=== PATIENT | male | born 1990 | race African-American/Black ===

== ENCOUNTER 2021-02-10 09:12 | Emergency (ER) | payer OTHER, SELFPAY ==
[2021-02-10 09:21] VITALS: BP 145/84; PULSE 95; RESP 14; TEMP 36.8; O2SAT 96; BMI 23.5
[2021-02-10] MEDS: Diphth,Pertus(ACell),Tet Adult 0.5 ML SYRINGE IM (09:39)
[2021-02-10] MEDS: Lidocaine HCl 1 % MPF 5 ML VIAL SUBCUT (09:40)
--- NOTE | 2021-02-10 10:26 | ED_ITS ---
HPI - Wound/Laceration General Chief Complaint: Wound/Laceration Stated Complaint: laceration to rt thumb Time Seen by Provider: 02/10/21 09:29 Source: patient Mode of arrival: ambulatory History of Present Illness HPI narrative: 30-year-old male presenting to the ED complaining of laceration to right thumb s/p reaching for CT this morning and slicing on metal bed frame. Tetanus out of date. Denies numbness, tingling, weakness, injury to the area, fever, chills Onset (ago): minute(s) Related Data Allergies Allergy/AdvReac Type Severity Reaction Status Date / Time No Known Allergies Allergy Unverified 05/10/20 17:39 [No Known Allergies*] Review of Systems Review of Systems: Constitutional: No Fever, No Chills Musculoskeletal: No joint pain, No Myalgias, No Joint Swelling Skin: + laceration Neuro: No Weakness, No Numbness, No Paresthesias Yes all other systems are reviewed and are negative Neurologic: Denies Sensory deficit (Neuro) [facility] Past Medical History Attestation statement: The following information was validated with the patient. Medical History (Updated 02/10/21 @ 10:28 by BASSAM Gates) HTN (hypertension) Surgical History (Updated 02/10/21 @ 09:23 by Corrine Harden) H/O wrist surgery Social History Social History Advance Directives: No Advance Directives Information Provided: No Physical Exam Vital Signs: Vital Signs: Last Vital Signs Temp 98.2 F 02/10/21 09:21 Pulse 95 02/10/21 09:21 Resp 14 02/10/21 09:21 BP 145/84 H 02/10/21 09:21 Pulse Ox 96 02/10/21 09:21 Body Mass Index 23.5 Const: General: cooperative, healthy appearing and no acute distress Orientation/consciousness: patient oriented x3 Limitations: no limitations HENMT: Head: Yes normal to inspection Ears: hearing grossly normal bilaterally General nose exam: Normal external nose present Face and sinus: Yes normal facial exam Eyes: General: appearance normal, both eyes and all related structures EOM: EOMs intact bilaterally Neck: Neck: Yes normal visual inspection and Yes no meningeal signs Resp: Effort & Inspection: normal respiratory effort Cardio: Rate: regular rate Peripheral pulses: radial pulses present Skin: Other: 2 cm linear laceration noted to distal right thumb. No nail involvement. Full range of motion intact. Sensation intact to light touch. [id number] opposition intact. Rashes: no rashes Neuro: General: patient oriented x3, tone normal, moves all extremities and no meningeal signs Gait exam (Neuro): Normal gait present Sensory Exam: No Sensory deficit (Neuro) Extrem: General: Yes normal to inspection Procedures Laceration Laceration 1: Site: hand Side (If applicable): right Size (cm): 2 Description: linear Depth: simple, single layer Local Anesthetic: lidocaine 1% Amount of anesthesia used (mL): 3 Pre-repair: wound explored Skin layer closed with: nylon Size (cm): 5-0 Number of sutures: 4 Technique: simple, interrupted MDM - Wound/Laceration MDM Narrative Medical decision making narrative: 30-year-old male presenting to the ED complaining of laceration to right thumb s/p reaching for CT this morning and slicing on metal bed frame. On exam vital signs stable, NAD, well-appearing, physical exam as above. Will update tetanus and suture wound Discharge Plan Discharge Clinical Impression: Hand laceration Qualifiers: Encounter type: initial encounter Foreign body presence: without foreign body Laterality: right Qualified Code(s): S61.411A - Laceration without foreign body of right hand, initial encounter Patient Disposition: Home, Self-Care Instructions: Finger Laceration (ED) Additional Instructions: return to any emergency department or urgent care in 7-10 days to have her stitches taken out keep area dry and clean Pat dry, do not scrub Take Tylenol and Motrin The Steri-Strips will follow up on their own, do not pick at them If area begins to look infected, is red, there is drainage, you fever please return to the ED Referrals: Physician,Unknown [Primary Care Provider] - 1 week ( return to any emergency department or urgent care in 7-10 days to have her stitches taken out) Stand Alone Forms: Work/School Release
== END 2021-02-10 10:39 | disposition home or self-care (01) ==
PROVIDERS: Emergency Provider Emergency Medicine
DX: S61.411A Laceration without foreign body of right hand, initial encounter (principal); I10 Essential (primary) hypertension; W26.9XXA Contact with unspecified sharp object(s), initial encounter; Y93.9 Activity, unspecified; Y92.9 Unspecified place or not applicable; Y99.9 Unspecified external cause status
CPT/HCPCS: 12001; 90471; 90715; 99283; 99284

== ENCOUNTER 2021-02-19 08:37 | Emergency (ER) | payer OTHER, SELFPAY ==
[2021-02-19 08:45] VITALS: BP 153/105; PULSE 100; RESP 16; TEMP 36.7; O2SAT 97; BMI 22.8
--- NOTE | 2021-02-19 09:49 | ED.WOUNDLAC ---
HPI - Wound/Laceration General Chief Complaint: Wound/Laceration Stated Complaint: stiches removed Time Seen by Provider: 02/19/21 09:45 Source: patient Mode of arrival: ambulatory History of Present Illness HPI narrative: 30-year-old male presenting to the ED for suture removal from right thumb s/p sutures placed in our ED 9 days ago. denies fever, chills, pus drainage from area Onset (ago): day(s) Related Data Allergies Allergy/AdvReac Type Severity Reaction Status Date / Time No Known Allergies Allergy Verified 02/19/21 08:45 [No Known Allergies*] Review of Systems Review of Systems: Constitutional: No Fever, No Chills Musculoskeletal: No joint pain, No Joint Swelling Skin: +laceration Neuro: No Weakness, No Numbness, No Paresthesias Yes all other systems are reviewed and are negative [facility] Past Medical History Attestation statement: The following information was validated with the patient. Medical History (Updated 02/19/21 @ 09:49 by BASSAM Gates) HTN (hypertension) Surgical History (Updated 02/10/21 @ 09:23 by Corrine Harden) H/O wrist surgery Social History Social History Advance Directives: Yes Advance Directives Information Provided: Yes Advance Directives on File: No Physical Exam Vital Signs: Vital Signs: Last Vital Signs Temp 98.1 F 02/19/21 08:45 Pulse 100 02/19/21 08:45 Resp 16 02/19/21 08:45 BP 153/105 H 02/19/21 08:45 Pulse Ox 97 02/19/21 08:45 Body Mass Index 22.8 Const: General: cooperative, healthy appearing and no acute distress Orientation/consciousness: patient oriented x3 Limitations: no limitations HENMT: Head: Yes normal to inspection Ears: hearing grossly normal bilaterally General nose exam: Normal external nose present Face and sinus: Yes normal facial exam Eyes: General: appearance normal, both eyes and all related structures EOM: EOMs intact bilaterally Neck: Neck: Yes normal visual inspection Resp: Effort & Inspection: normal respiratory effort Cardio: Rate: regular rate Peripheral pulses: radial pulses present Skin: Other: healing laceration noted to right distal thumb with 4 sutures intact. NV intact. FROM intact Rashes: no rashes Neuro: General: patient oriented x3 Gait exam (Neuro): Normal gait present Extrem: General: Yes normal to inspection Procedures Procedure Narrative Procedure Narrative: 4 sutures removed from right thumb MDM - Wound/Laceration Medical Records Attestation: I reviewed the patient's medical records. Discharge Plan Discharge Clinical Impression: Encounter for removal of sutures Patient Disposition: Home, Self-Care Instructions: Stitches Removal (ED) Additional Instructions: keep area clean. If begins look infected, is red, there is drainage, or pus drainage return to the ED. Take Tylenol/ Motrin for pain/ swelling. Apply bacitracin or Neosporin. Apply Mederma which is an anti scar cream Referrals: Physician,Unknown [Primary Care Provider] - 2 days Stand Alone Forms: Work/School Release
== END 2021-02-19 10:01 | disposition home or self-care (01) ==
PROVIDERS: Emergency Provider Emergency Medicine Emergency Medical Services
DX: S61.011D Laceration without foreign body of right thumb without damage to nail, subsequent encounter (principal); X58.XXXD Exposure to other specified factors, subsequent encounter
CPT/HCPCS: 99283

== ENCOUNTER → 2021-05-22 13:24 | Outpatient (BNVA) | payer OTHER, SELFPAY | PROVIDERS: Visit Provider Physician Assistant Medical | DX: Z77.098 Contact with and (suspected) exposure to other hazardous, chiefly nonmedicinal, chemicals (principal); T26.91XA Corrosion of right eye and adnexa, part unspecified, initial encounter; X58.XXXA Exposure to other specified factors, initial encounter | CPT/HCPCS: 99203 ==

== ENCOUNTER 2022-01-02 07:47 | Emergency (ER) | payer BC, SELFPAY ==
--- NOTE | ~2022-01-02 | XR_ITS ---
EXAMINATION: XR CHEST CLINICAL INFORMATION: Shortness of breath. COMPARISON: None TECHNIQUE: 2 views of the chest were obtained. FINDINGS: No significant abnormality is noted involving the heart, lungs, mediastinum, bony thorax or soft tissues. XR/XR chest 2V IMPRESSION: No acute cardiopulmonary process.
[2022-01-02 08:05] VITALS: BP 159/86; PULSE 104; RESP 18; TEMP 36.6; O2SAT 98; BMI 22.9
--- NOTE | 2022-01-02 08:44 | ED_ITS ---
HPI - General Adult General Chief complaint: General Medical Stated complaint: tingling in hands and feet Time Seen by Provider: 01/02/22 08:13 Source: patient Mode of arrival: ambulatory Limitations: no limitations History of Present Illness HPI narrative: 31-year-old male presents for bilateral foot tingling that started last week. This sensation started last week and then resolved, then again yesterday aftern oon he had bilateral foot tingling. States that at 07:00 this morning his right arm felt tight, and he felt nauseous. Denies chest pain, denies shortness of breath. States his hands are sweaty now. History of hypertension, patient states he has been taking his blood pressure medication in a year because he has not been able to get in to see his PCP. His mom was an insulin-dependent diabetic who had CT at age 66. She 3 weeks ago in [place] and he had to get her cremated and work with the [employer] to have her ashes flown home. His mother was in [place] to take care of his grandmother also recently . Father had a heart attack in his late 40s. Without me asking, patient took his clothes is that he has been drinking a lot of alcohol. States he drinks 5-10 drinks a day, has occasional blackouts, sometimes drinks in the morning, sometimes feels guilty about drinking. Related Data Previous Rx's Medication Instructions Recorded gabapentin 300 mg capsule 300 mg PO BID 30 Days #60 cap 01/02/22 Allergies Allergy/AdvReac Type Severity Reaction Status Date / Time No Known Allergies Allergy Verified 02/19/21 08:45 [No Known Allergies*] Review of Systems Constitutional: Constitutional: Denies body ache(s), Denies chills, Denies fatigue, Denies fever(s), Denies headache(s), Denies malaise and Denies weakness Eyes: Eyes: Denies diplopia ENT: Reports Normal hearing present, Denies vertigo, Denies dizziness, Denies otalgia, Denies headache(s), Denies mouth pain, Denies post nasal drip, Denies sinus pain, Denies sinus pressure, Denies sore throat and Denies throat swelling Cardiovascular: Cardiovascular: Denies chest pain, Denies syncope, Denies leg edema, Denies lightheadedness, Denies Loss of Consciousness, Denies palpitations and Denies dyspnea Respiratory: Respiratory: Denies chest congestion, Denies cough and Denies dyspnea Gastrointestinal: Gastrointestinal: Denies abdominal pain, Denies hematochezia, Denies constipation, Denies diarrhea, Reports nausea and Denies vomiting Musculoskeletal: Musculoskeletal: Reports myalgias and Reports tingling Neurologic: Reports Normal hearing present, Denies Abnormal speech present, Denies confusion, Denies vertigo, Denies dizziness, Denies syncope, Denies headache(s), Denies Sensory deficit (Neuro), Reports tingling and Denies weakness Psychiatric: Psychiatric: Reports anxiety, Denies confusion and Denies depression Endocrine: Endocrine: Denies fatigue and Denies palpitations Allergic/Immunologic: Allergic/Immunologic: Denies throat swelling PMFSH Past Medical History Medical History HTN (hypertension) Surgical History H/O wrist surgery Social History Social History Advance Directives: No Advance Directives Information Provided: No Physical Exam ED Vital Signs: Vital Signs - 24 hr 01/02/22 08:05 Temperature 98 F Pulse Rate 104 H Respiratory Rate 18 Blood Pressure 159/86 H Pulse Oximetry 98 BMI result Body Mass Index 22.9 Const General: comfortable, well developed, alert and awake; No confusion Nutritional Appearance: well nourished Orientation/consciousness: patient oriented x3 and No confusion Limitations: no limitations HENMT Head: Yes normal to inspection, Yes normocephalic and Yes atraumatic Ears: hearing grossly normal bilaterally, external ears normal, TM's normal bilaterally and EAC's normal General nose exam: Normal external nose present Face and sinus: Yes normal facial exam and Yes sinuses nontender Mouth: Normal oral and palatal mucosa present Throat: Yes posterior oropharynx normal Eyes Conjunctivae: conjunctivae normal Pupils: Equal, round and reactive pupils present EOM: EOMs intact bilaterally and No Nystagmus present Neck Neck: Yes full ROM, Yes no lymphadenopathy and Yes supple Resp Effort & Inspection: normal respiratory effort and able to speak in complete sentences Auscultation: clear to auscultation bilaterally, no crackles, no rales, no rh onchi and no wheezes Cardio Rate: regular rate Rhythm: regular rhythm Heart sounds: S1 normal heart sound present and S2 normal heart sound present GI Inspection: Yes normal to inspection Palpation (GI): Soft to palpation, nontender, no guarding and not rigid Percussion: Yes normal to percussion Auscultation: normal bowel sounds Skin General skin exam: no rashes or lesions noted Neuro General: patient oriented x3 and No confusion Cranial nerves: Yes CN's II-XII intact bilaterally, Yes Facial sensation intact/muscles of mastication intact, Yes Equal, round and reactive pupils present, Yes Normal accommodation reflex present, Yes Bilaterally intact EOM p resent, Yes Nystagmus not present, Yes Normal facial strength present, Yes Midline tongue present, Yes Normal hearing present, Yes Ability to bilaterally rotate head present, Yes Ability to bilaterally elevate shoulders present and No Nystagmus present Cognition (Neuro): normal cognition Speech: No Abnormal speech present Gait exam (Neuro): Normal gait present Motor exam (neuro): 5/5 motor strength present throughout Sensory Exam: No Sensory deficit (Neuro) Deep tendon reflexes (DTR's): Right brachioradialis reflex intensity grade: 1+, Left brachioradialis reflex intensity grade: 1+, Right patellar reflex intensity grade: 1+ and Left patellar reflex intensity grade: 1+ Coordination: [id number] test normal and [id number] test normal Pupils: Normal pupillary reactivity/response: bilateral Extrem General: Yes normal to inspection and Yes full ROM Psych Appearance: grossly normal Mental Status: mental status grossly normal Speech and movement: Normal speech and movement present Affect: normal affect Attitude: cooperative Thought process: Normal thought process present Course Course Course Narrative: 31-year-old presents for tingling in his toes that started a few weeks ago and has been going on intermittently. Patient has a normal neurological exam. Patient discloses to me that he is concerned about his drinking. Patient is under a lot of life stressors. EKG, labs, troponin Spoke to Sheila, basketball coach, she interviewed patient. Patient is interested in naltrexone. Sheila will walk him up to the [facility] once he is discharged from the emergency room, so patient can get started on naltrexone and get a referral to a therapist Reevaluation(s) Reevaluation #1: Patient has a low white blood cell count at 2.2, is mildly anemic with H&H at 13.6 and 41.5, platelets 147. Chemistries show blood glucose is 105, elevated liver function tests, AST 195, ALT 153, troponin 5.7. Elevated liver function tests can be explained by patient's alcohol abuse Patient has no bandemia with his leukocytopenia, will have patient follow-up with primary care after discharge with possible referral to a human resource manager I do not think the leukocytopenia is sepsis, patient only has the 1 criteria, rule normal temp, RR, heart rate. To note, patient has no history of fevers, dysuria, cough, upper respiratory symptoms, abdominal pain, chest pain, shortness of breath, nausea, vomiting, diarrhea, headache, neck pain, blurry vision Patient's heart rate was initially elevated at 104, now is back to normal, I do think patient's elevated heart rate was due to anxiety. Repeat HR 84 Because we are repeating troponin, will get urine and chest x-ray as well Will repeat troponin in 3 hours, if negative, will [facility]po [facility] Reevaluation #2: Repeat troponin 5.4, chest x-ray is normal, urine is not infected Will have patient follow-up with primary care for leukocytopenia, elevated liver function test, peripheral neuropathy swimming coach or instructor will escort patient to [facility] Medical Decision Making Lab Data Result diagrams: 01/02/22 09:32 01/02/22 09:32 Labs: Lab Results 01/02/22 01/02/22 01/02/22 Range/Units 09:32 09:32 09:32 WBC 2.2 L (4.8-10.8) X10*3/uL RBC 4.77 (4.60-5.80) X10*6/uL Hgb 13.6 L (14.0-18.0) g/dl Hct 41.5 L (42.0-52.0) % MCV 87.0 (80.0-98.0) fL MCH 28.5 (27.0-33.0) pg MCHC 32.8 (31.0-36.0) g/dl RDW 14.4 (11.0-16.0) % Plt Count 147 L (160-400) X10*3/uL MPV 9.9 (9.4-12.4) fL Immature Gran % (Auto) 0.5 H (0.0-0.4) % Neut % (Auto) 33.1 L (45-73) % Lymph % (Auto) 43.8 H (20-40) % Angelina % (Auto) 21.2 H (2-11) % Eos % (Auto) 0.5 (0-4) % Baso % (Auto) 0.9 (0-2) % Lymph # (Auto) 1.0 L (1.2-4.9) X10*3/uL Angelina # (Auto) 0.5 (0.1-1.2) X10*3/uL Eos # (Auto) 0.0 (0.0-0.4) X10*3/uL Baso # (Auto) 0.0 (0.0-0.2) X10*3/uL Abs Immat Gran (auto) 0.01 (0.00-0.03) X10*3/uL Absolute Neuts (auto) 0.7 L (2.0-8.3) x10*3/uL Absolute Nucleated RBC 0.000 (0.0-0.012) X10*3/uL Nucleated RBC % (auto) 0.0 (0.0-0.2) /100WBC Smear Tech's Comments VERIFIED Sodium 141 (135-145) mmol/L Potassium 4.3 (3.3-5.1) mmol/L Chloride 101 (96-108) mmol/L Carbon Dioxide 29 (22-29) mmol/L Anion Gap 15 (12-20) BUN 10 (9-16) mg/dL Creatinine 0.83 (0.5-1.4) mg/dL Estim Creat Clear Calc 141.3 Estimated GFR > 60 Random Glucose 105 (60-115) mg/dL Calcium 9.8 (8.4-10.2) mg/dL Total Bilirubin 0.8 (0.0-1.0) mg/dL AST 195 H (5-37) U/L ALT 153 H (0-40) U/L Alkaline Phosphatase 81 (39-117) U/L Troponin I High Sens 5.7 (<3.5-35.0) ng/L Total Protein 8.3 H (6.5-8.0) g/dL Albumin 4.8 (3.5-5.0) g/dL Urine Color Urine Appearance Urine pH (5.0-8.0) Ur Specific Gay (1.005-1.025) Urine Protein (NEG-TRACE) MG/DL Urine Glucose (UA) (NEG) MG/DL Urine Ketones (NEG) MG/DL Urine Blood (NEG) Urine Nitrite (NEG) Ur Leukocyte Esterase (NEG) Urine RBC (0) /HPF Urine WBC (0-4) /HPF Ur Squamous Epith Cells /LPF Urine Bacteria /LPF Urine Mucus /LPF 01/02/22 01/02/22 Range/Units 12:25 12:25 WBC (4.8-10.8) X10*3/uL RBC (4.60-5.80) X10*6/uL Hgb (14.0-18.0) g/dl Hct (42.0-52.0) % MCV (80.0-98.0) fL MCH (27.0-33.0) pg MCHC (31.0-36.0) g/dl RDW (11.0-16.0) % Plt Count (160-400) X10*3/uL MPV (9.4-12.4) fL Immature Gran % (Auto) (0.0-0.4) % Neut % (Auto) (45-73) % Lymph % (Auto) (20-40) % Angelina % (Auto) (2-11) % Eos % (Auto) (0-4) % Baso % (Auto) (0-2) % Lymph # (Auto) (1.2-4.9) X10*3/uL Angelina # (Auto) (0.1-1.2) X10*3/uL Eos # (Auto) (0.0-0.4) X10*3/uL Baso # (Auto) (0.0-0.2) X10*3/uL Abs Immat Gran (auto) (0.00-0.03) X10*3/uL Absolute Neuts (auto) (2.0-8.3) x10*3/uL Absolute Nucleated RBC (0.0-0.012) X10*3/uL Nucleated RBC % (auto) (0.0-0.2) /100WBC Smear Tech's Comments Sodium (135-145) mmol/L Potassium (3.3-5.1) mmol/L Chloride (96-108) mmol/L Carbon Dioxide (22-29) mmol/L Anion Gap (12-20) BUN (9-16) mg/dL Creatinine (0.5-1.4) mg/dL Estim Creat Clear Calc Estimated GFR Random Glucose (60-115) mg/dL Calcium (8.4-10.2) mg/dL Total Bilirubin (0.0-1.0) mg/dL AST (5-37) U/L ALT (0-40) U/L Alkaline Phosphatase (39-117) U/L Troponin I High Sens 5.4 (<3.5-35.0) ng/L Total Protein (6.5-8.0) g/dL Albumin (3.5-5.0) g/dL Urine Color YELLOW Urine Appearance CLEAR Urine pH 8.0 (5.0-8.0) Ur Specific Gay 1.015 (1.005-1.025) Urine Protein 1+ H (NEG-TRACE) MG/DL Urine Glucose (UA) NEG (NEG) MG/DL Urine Ketones 5 (NEG) MG/DL Urine Blood NEG (NEG) Urine Nitrite NEG (NEG) Ur Leukocyte Esterase NEG (NEG) Urine RBC 1-4 (0) /HPF Urine WBC 0 (0-4) /HPF Ur Squamous Epith Cells 1+ /LPF Urine Bacteria NONE /LPF Urine Mucus TRACE /LPF ECG Data Interpretation: Sinus at a rate of 87, PA interval 134, QRS 86, QTC is not prolonged at 04:47, normal axis, no ST depression or elevation, no T-wave abnormality Discharge Plan Discharge Clinical Impression: Neuropathy, Alcohol abuse, Leukocytopenia, Elevated LFTs Patient Disposition: Home, Self-Care Instructions: Abuse of Alcohol (ED), Peripheral Neuropathy (ED) Additional Instructions: Please call your primary care provider, you need follow-up for your blood pressure, your peripheral neuropathy, in other words the tingling in your feet, your low white blood cell count, and your elevated liver function tests. I have ordered gabapentin that may help with the tingling in your feet, but this is something your primary care provider needs to follow. Please follow-up with the [facility] for therapy and naltrexone. Please return to the emergency room if you have any other new or concerning symptoms Prescriptions: New gabapentin 300 mg capsule 300 mg PO BID 30 Days Qty: 60 0RF Stand Alone Forms: Work/School Release
--- NOTE | 2022-01-02 08:44 | ECG_ITS ---
Test Reason : tilgy feeling Blood Pressure : / mmHG Vent. Rate : 087 BPM Atrial Rate : 087 BPM P-R Int : 134 ms QRS Dur : 086 ms QT Int : 372 ms P-R-T Axes : 077 053 049 degrees QTc Int : 447 ms Normal sinus rhythm Normal ECG No previous ECGs available Referred By: Liliana Sanchez Electronically Signed By:EVELINE CAMP MD
[2022-01-02 09:38] LABS: Basophils Percent Auto 0.9 % (0-2); Eosinophils Percent Auto 0.5 % (0-4); Hematocrit 41.5 % (42.0-52.0); Hemoglobin 13.6 g/dl (14.0-18.0); Imm Gran Abs Auto 0.01 X10*3/uL (0.00-0.03); Imm Gran Pct Auto 0.5 % (0.0-0.4); Lymphocytes Percent Auto 43.8 % (20-40); MANUAL DIFF FLAG SCAN; Mean Corpuscular HGB Conc 32.8 g/dl (31.0-36.0); Mean Corpuscular Hemoglobin 28.5 pg (27.0-33.0); Mean Platelet Volume 9.9 fL (9.4-12.4); Monocytes Absolute Auto 0.5 X10*3/uL (0.1-1.2); Monocytes Percent Auto 21.2 % (2-11); Neutrophils Absolute Auto 0.7 x10*3/uL (2.0-8.3); Neutrophils Percent Auto 33.1 % (45-73); Platelet Count 147 X10*3/uL (160-400); Red Blood Count 4.77 X10*6/uL (4.60-5.80); Red Cell Distribution Width 14.4 % (11.0-16.0); SCAN SMEAR FLAG 1
[2022-01-02 09:44] LABS: White Blood Count 2.2 X10*3/uL (4.8-10.8)
[2022-01-02 10:04] LABS: Alanine Aminotransferase 153 U/L (0-40); Albumin Level 4.8 g/dL (3.5-5.0); Alkaline Phosphatase 81 U/L (39-117); Anion Gap 15 (12-20); Aspartate Amino Transferase 195 U/L (5-37); Bilirubin Total 0.8 mg/dL (0.0-1.0); Blood Urea Nitrogen 10 mg/dL (9-16); Calcium 9.8 mg/dL (8.4-10.2); Carbon Dioxide 29 mmol/L (22-29); Chloride 101 mmol/L (96-108); Creatinine Clr Calc Pharmacy 141.3; Estimated Glomerular Filt Rate > 60; Glucose Random 105 mg/dL (60-115); Potassium 4.3 mmol/L (3.3-5.1); Sodium 141 mmol/L (135-145); Total Protein 8.3 g/dL (6.5-8.0)
[2022-01-02 10:07] LABS: Troponin-I High Sensitivity 5.7 ng/L (<3.5-35.0)
[2022-01-02 10:10] LABS: SLIDE REVIEW VERIFIED
--- NOTE | 2022-01-02 11:23 | MHC.RECOVRN ---
Met with pt in [facility] after consult placed to CARE Team to discuss alcohol use. Pt reports currently drinking 2 beers and a few shots after work daily x about 2 years. Prior to that, pt would drink occaisonally. Pt has never received tx for AUD. Pt denies ever experiencing withdrawal symptoms. Pt reports many life stressors including having a , beginning a new job, grandmother passing away 4 months ago and mother passing away about a month ago. Mother was in [place] which is difficult for pt to arrange to have body returned to [place] Pts primary support is his . Pt would like to decrease amount of alcohol used, not necessarily abstain. Discussed recovery supports and resources with pt, as well as provided written material. Pt interested in naltrexone and becoming a pt at the [facility]. Discussed with ED provider as well as Kristy Mcintyre APRN. Plan for pt to present to [facility] as a walk in after dc from ED.
[2022-01-02 12:33] LABS: Appearance Urine CLEAR; Color Urine YELLOW; Glucose Urine UA NEG (NEG); Leukocyte Esterase Urine NEG (NEG); Nitrite Urine NEG (NEG); Specific Gravity - Urine 1.015 (1.005-1.025); UACC Culture Trigger NO; Urine Blood NEG (NEG); Urine Ketones 5 MG/DL (NEG); Urine Protein 1+ MG/DL (NEG-TRACE)
[2022-01-02 12:55] LABS: Mucus Urine TRACE /LPF; Squamous Epithelial Cell Urine 1+ /LPF; Troponin-I High Sensitivity 5.4 ng/L (<3.5-35.0)
[2022-01-02 12:58] LABS: WBC Urine 0 /HPF (0-4)
== END 2022-01-02 13:16 | disposition home or self-care (01) ==
PROVIDERS: Physician Assistant; Emergency Provider Emergency Medicine
DX: G62.9 Polyneuropathy, unspecified (principal); F10.10 Alcohol abuse, uncomplicated; D72.819 Decreased white blood cell count, unspecified; R79.89 Other specified abnormal findings of blood chemistry; D64.9 Anemia, unspecified; I10 Essential (primary) hypertension
CPT/HCPCS: 36415; 71046; 80053; 81001; 84484; 85025; 93005; 99283

== ENCOUNTER → 2022-01-16 16:45 | Outpatient (BNVA) | payer BC, SELFPAY | PROVIDERS: Visit Provider Nurse Practitioner Psychiatric/Mental Health | DX: F10.20 Alcohol dependence, uncomplicated (principal) ==

== ENCOUNTER 2022-11-17 12:38 | Emergency (ER) | payer BC, SELFPAY ==
--- NOTE | 2022-11-17 12:38 | ECG_ITS ---
Test Reason : cp Blood Pressure : / mmHG Vent. Rate : 113 BPM Atrial Rate : 113 BPM P-R Int : 136 ms QRS Dur : 080 ms QT Int : 324 ms P-R-T Axes : 080 072 065 degrees QTc Int : 444 ms Sinus tachycardia Otherwise normal ECG When compared with ECG of 02-JAN-2022 09:14, No significant change was found Referred By: Generic ED Physician Electronically Signed By:MANDY BARRERA
[2022-11-17 12:46] VITALS: BP 135/114; PULSE 110; RESP 18; TEMP 36.7; O2SAT 99; BMI 21.3
--- NOTE | 2022-11-17 12:49 | ED_ITS ---
HPI - Chest Pain General Chief Complaint: Chest Pain <BASSAM Murphy - Last Filed: 11/30/22 12:47> Stated Complaint: chest pain <BASSAM Murphy - Last Filed: 11/30/22 12:47> Time Seen by Provider: 11/17/22 15:11 <BASSAM Murphy - Last Filed: 11/30/22 12:47> Source: patient <Luz Marina Arriaga MD - Last Filed: 11/17/22 16:59> Mode of arrival: ambulatory <Luz Marina Arriaga MD - Last Filed: 11/17/22 16:59> History of Present Illness HPI narrative: 32-year-old male without significant past medical history but has a significant history of alcohol and drugs reports that he has had chest tightness with increasing throughout the morning without dizziness or diaphoresis but states he had some tingling down the left arm and this was not associated with respiration or movement. <Luz Marina Arriaga MD - Last Filed: 11/17/22 16:59> Related Data Home Medications: Previous Rx's Medication Instructions Recorded gabapentin 300 mg capsule 300 mg PO BID 30 days #60 caps 01/02/22 naltrexone 50 mg tablet 50 mg PO DAILY #30 tabs 02/28/22 <BASSAM Murphy - Last Filed: 11/30/22 12:47> Allergies/Adverse Reactions: Allergies Allergy/AdvReac Type Severity Reaction Status Date / Time No Known Allergies Allergy Verified 01/02/22 13:27 [No Known Allergies*] <BASSAM Murphy - Last Filed: 11/30/22 12:47> Review of Systems Review of Systems: Pertinent positives and negatives as stated in HPI <Luz Marina Arriaga MD - Last Filed: 11/17/22 16:59> PMFSH Past Medical History Source: nursing notes reviewed <Luz Marina Arriaga MD - Last Filed: 11/17/22 16:59> Medical History: Medical History HTN (hypertension) <BASSAM Murphy - Last Filed: 11/30/22 12:47> Surgical History: Surgical History H/O wrist surgery <BASSAM Murphy - Last Filed: 11/30/22 12:47> Social History Social History: Social History Advance Directives: No Advance Directives Information Provided: Yes <BASSAM Murphy - Last Filed: 11/30/22 12:47> Physical Exam Vital Signs: Vital Signs: Last Vital Signs Temp 97.6 F 11/17/22 15:26 Pulse 90 11/17/22 15:26 Resp 18 11/17/22 15:26 BP 118/74 11/17/22 15:26 Pulse Ox 97 11/17/22 15:26 O2 Del Method Room Air 11/17/22 15:26 BMI result Body Mass Index 21.3 <BASSAM Murphy - Last Filed: 11/30/22 12:47> Vital Signs: Last Vital Signs Temp 97.6 F 11/17/22 15:26 Pulse 90 11/17/22 15:26 Resp 18 11/17/22 15:26 BP 118/74 11/17/22 15:26 Pulse Ox 97 11/17/22 15:26 O2 Del Method Room Air 11/17/22 15:26 BMI result Body Mass Index 21.3 VITAL SIGNS: Reviewed. GENERAL: Well developed, well nourished, in no acute distress. HEAD: Normocephalic/atraumatic EYES: PERRLA, EOMI LUNGS: Normal breath sounds. No adventitious sounds or accessory muscle use. SpO2<97> CARDIOVASCULAR: Regular rate and rhythm without noted murmurs ABDOMEN: Soft, non-tender, non-distended with bowel sounds. MUSCULOSKELETAL: No tenderness, deformities, or effusions noted on gross inspection. EXTREMITIES: No cyanosis, clubbing or edema. SKIN: Inspection of the skin reveals no rashes NEUROLOGIC: Alert and oriented x 4. Strength and sensation to light touch were grossly intact x 4. <Luz Marina Arriaga MD - Last Filed: 11/17/22 16:59> Course Course Course Narrative: 32-year-old male presents to ED for chest pain described as tightness with left arm tingling. Patient denies any leg swelling calf pain, coughing up blood, recent long travel or recent surgery. Patient denies any URI symptoms. EKG shows sinus tach. Labs troponin chest x-ray SARs ordered. <BASSAM Murphy - Last Filed: 11/30/22 12:47> Medications Administered Discontinued Medications Generic Name Dose Route Start Last Admin Trade Name Freq PRN Reason Stop Dose Admin Acetaminophen 975 mg 11/17/22 16:44 11/17/22 17:12 Acetaminophen 325 Mg Tablet PO 11/17/22 16:45 975 mg ONCE ONE Administration Al Hydroxide/Mg Hydroxide 30 ml 11/17/22 16:44 11/17/22 17:11 Magnesium Hydrox/Alum Hydrox 30 Ml Oral.Susp PO 11/17/22 16:45 30 ml ONCE ONE Administration Ibuprofen 400 mg 11/17/22 16:44 11/17/22 17:11 Ibuprofen 400 Mg Tablet PO 11/17/22 16:45 400 mg ONCE ONE Administration Lidocaine HCl 10 ml 11/17/22 16:44 11/17/22 17:11 Lidocaine Hcl Viscous 2 % 15 Ml Solution MUCOUS MEM 11/17/22 16:45 10 ml ONCE ONE Administration <BASSAM Murphy - Last Filed: 11/30/22 12:47> Medications Administered Discontinued Medications Generic Name Dose Route Start Last Admin Trade Name Julián PRN Reason Stop Dose Admin Acetaminophen 975 mg 11/17/22 16:44 11/17/22 17:12 Acetaminophen 325 Mg Tablet PO 11/17/22 16:45 975 mg ONCE ONE Administration Al Hydroxide/Mg Hydroxide 30 ml 11/17/22 16:44 11/17/22 17:11 Magnesium Hydrox/Alum Hydrox 30 Ml Oral.Susp PO 11/17/22 16:45 30 ml ONCE ONE Administration Ibuprofen 400 mg 11/17/22 16:44 11/17/22 17:11 Ibuprofen 400 Mg Tablet PO 11/17/22 16:45 400 mg ONCE ONE Administration Lidocaine HCl 10 ml 11/17/22 16:44 11/17/22 17:11 Lidocaine Hcl Viscous 2 % 15 Ml Solution MUCOUS MEM 11/17/22 16:45 10 ml ONCE ONE Administration <Luz Marina Arriaga MD - Last Filed: 11/17/22 16:59> Medical Decision Making Medical Decision Making MDM Narrative: 32-year-old male with history and clinical presentation after review of all investigations my interpretation is that this patient has atypical chest pa in is likely muscle strain/costochondritis in nature given job that requires movement of many items. Patient was treated with combination analgesics as well as a GI cocktail given his endorsement of alcohol use. Reason courage to follow-up his primary care provider if no improvement within the next 2 days. <Luz Marina Arriaga MD - Last Filed: 11/17/22 16:59> Differential Diagnosis Please see the discussion above <Luz Marina Arriaga MD - Last Filed: 11/17/22 16:59> Lab Data Please see the discussion above <Luz Marina Arriaga MD - Last Filed: 11/17/22 16:59> Result Diagrams: 11/17/22 12:54 11/17/22 12:53 <BASSAM Murphy - Last Filed: 11/30/22 12:47> Labs: Lab Results 11/17/22 11/17/22 11/17/22 Range/Units 12:53 12:53 12:53 WBC (4.8-10.8) X10*3/uL RBC (4.60-5.80) X10*6/uL Hgb (14.0-18.0) g/dl Hct (42.0-52.0) % MCV (80.0-98.0) fL MCH (27.0-33.0) pg MCHC (31.0-36.0) g/dl RDW (11.0-16.0) % Plt Count (160-400) X10*3/uL MPV (9.4-12.4) fL Immature Gran % (Auto) (0.0-0.4) % Neut % (Auto) (45-73) % Lymph % (Auto) (20-40) % [place] % (Auto) (2-11) % Eos % (Auto) (0-4) % Baso % (Auto) (0-2) % Lymph # (Auto) (1.2-4.9) X10*3/uL [place] # (Auto) (0.1-1.2) X10*3/uL Eos # (Auto) (0.0-0.4) X10*3/uL Baso # (Auto) (0.0-0.2) X10*3/uL Abs Immat Gran (auto) (0.00-0.03) X10*3/uL Absolute Neuts (auto) (2.0-8.3) x10*3/uL Absolute Nucleated RBC (0.0-0.012) X10*3/uL Nucleated RBC % (auto) (0.0-0.2) /100WBC Smear Tech's Comments PT (10.0-13.1) SEC INR (0.9-1.1) APTT (26.0-36.4) SEC D-Dimer High Sensitivty NG/ML Sodium 140 (135-145) mmol/L Potassium 3.5 (3.3-5.1) mmol/L Chloride 101 (96-108) mmol/L Carbon Dioxide 24 (22-29) mmol/L Anion Gap 19 (12-20) BUN 9 (9-16) mg/dL Creatinine 0.88 (0.5-1.4) mg/dL Estim Creat Clear Calc 125.9 Estimated GFR > 60 Random Glucose 97 (60-115) mg/dL Calcium 9.1 D (8.4-10.2) mg/dL Total Bilirubin 0.5 (0.0-1.0) mg/dL AST 60 H (5-37) U/L ALT 48 H (0-40) U/L Alkaline Phosphatase 109 (39-117) U/L Troponin I High Sens < 3.5 (<3.5-35.0) ng/L B-Natriuretic Peptide < 10 (<100) pg/mL Total Protein 7.9 (6.5-8.0) g/dL Albumin 4.8 (3.5-5.0) g/dL Influenza Type A (PCR) (Negative) Influenza Type B (PCR) (Negative) RSV RNA Qual (PCR) (Negative) SARS-CoV-2 RNA (RT-PCR) (Negative) 11/17/22 11/17/22 11/17/22 Range/Units 12:54 13:01 13:01 WBC 5.3 (4.8-10.8) X10*3/uL RBC 4.86 (4.60-5.80) X10*6/uL Hgb 14.2 (14.0-18.0) g/dl Hct 42.2 (42.0-52.0) % MCV 86.8 (80.0-98.0) fL MCH 29.2 (27.0-33.0) pg MCHC 33.6 (31.0-36.0) g/dl RDW 14.2 (11.0-16.0) % Plt Count 227 D (160-400) X10*3/uL MPV 9.8 (9.4-12.4) fL Immature Gran % (Auto) 0.2 (0.0-0.4) % Neut % (Auto) 25.3 L (45-73) % Lymph % (Auto) 65.5 H (20-40) % [place] % (Auto) 7.6 (2-11) % Eos % (Auto) 0.6 (0-4) % Baso % (Auto) 0.8 (0-2) % Lymph # (Auto) 3.5 (1.2-4.9) X10*3/uL [place] # (Auto) 0.4 (0.1-1.2) X10*3/uL Eos # (Auto) 0.0 (0.0-0.4) X10*3/uL Baso # (Auto) 0.0 (0.0-0.2) X10*3/uL Abs Immat Gran (auto) 0.01 (0.00-0.03) X10*3/uL Absolute Neuts (auto) 1.3 L (2.0-8.3) x10*3/uL Absolute Nucleated RBC 0.000 (0.0-0.012) X10*3/uL Nucleated RBC % (auto) 0.0 (0.0-0.2) /100WBC Smear Tech's Comments VERIFIED PT 11.0 (10.0-13.1) SEC INR 1.0 (0.9-1.1) APTT 31.5 (26.0-36.4) SEC D-Dimer High Sensitivty < 150 NG/ML Sodium (135-145) mmol/L Potassium (3.3-5.1) mmol/L Chloride (96-108) mmol/L Carbon Dioxide (22-29) mmol/L Anion Gap (12-20) BUN (9-16) mg/dL Creatinine (0.5-1.4) mg/dL Estim Creat Clear Calc Estimated GFR Random Glucose (60-115) mg/dL Calcium (8.4-10.2) mg/dL Total Bilirubin (0.0-1.0) mg/dL AST (5-37) U/L ALT (0-40) U/L Alkaline Phosphatase (39-117) U/L Troponin I High Sens (<3.5-35.0) ng/L B-Natriuretic Peptide (<100) pg/mL Total Protein (6.5-8.0) g/dL Albumin (3.5-5.0) g/dL Influenza Type A (PCR) NEGATIVE (Negative) Influenza Type B (PCR) NEGATIVE (Negative) RSV RNA Qual (PCR) NEGATIVE (Negative) SARS-CoV-2 RNA (RT-PCR) NEGATIVE (Negative) <BASSAM Murphy - Last Filed: 11/30/22 12:47> Lab Results 11/17/22 11/17/22 11/17/22 Range/Units 12:53 12:53 12:53 WBC (4.8-10.8) X10*3/uL RBC (4.60-5.80) X10*6/uL Hgb (14.0-18.0) g/dl Hct (42.0-52.0) % MCV (80.0-98.0) fL MCH (27.0-33.0) pg MCHC (31.0-36.0) g/dl RDW (11.0-16.0) % Plt Count (160-400) X10*3/uL MPV (9.4-12.4) fL Immature Gran % (Auto) (0.0-0.4) % Neut % (Auto) (45-73) % Lymph % (Auto) (20-40) % [place] % (Auto) (2-11) % Eos % (Auto) (0-4) % Baso % (Auto) (0-2) % Lymph # (Auto) (1.2-4.9) X10*3/uL [place] # (Auto) (0.1-1.2) X10*3/uL Eos # (Auto) (0.0-0.4) X10*3/uL Baso # (Auto) (0.0-0.2) X10*3/uL Abs Immat Gran (auto) (0.00-0.03) X10*3/uL Absolute Neuts (auto) (2.0-8.3) x10*3/uL Absolute Nucleated RBC (0.0-0.012) X10*3/uL Nucleated RBC % (auto) (0.0-0.2) /100WBC Smear Tech's Comments PT (10.0-13.1) SEC INR (0.9-1.1) APTT (26.0-36.4) SEC D-Dimer High Sensitivty NG/ML Sodium 140 (135-145) mmol/L Potassium 3.5 (3.3-5.1) mmol/L Chloride 101 (96-108) mmol/L Carbon Dioxide 24 (22-29) mmol/L Anion Gap 19 (12-20) BUN 9 (9-16) mg/dL Creatinine 0.88 (0.5-1.4) mg/dL Estim Creat Clear Calc 125.9 Estimated GFR > 60 Random Glucose 97 (60-115) mg/dL Calcium 9.1 D (8.4-10.2) mg/dL Total Bilirubin 0.5 (0.0-1.0) mg/dL AST 60 H (5-37) U/L ALT 48 H (0-40) U/L Alkaline Phosphatase 109 (39-117) U/L Troponin I High Sens < 3.5 (<3.5-35.0) ng/L B-Natriuretic Peptide < 10 (<100) pg/mL Total Protein 7.9 (6.5-8.0) g/dL Albumin 4.8 (3.5-5.0) g/dL Influenza Type A (PCR) (Negative) Influenza Type B (PCR) (Negative) RSV RNA Qual (PCR) (Negative) SARS-CoV-2 RNA (RT-PCR) (Negative) 11/17/22 11/17/22 11/17/22 Range/Units 12:54 13:01 13:01 WBC 5.3 (4.8-10.8) X10*3/uL RBC 4.86 (4.60-5.80) X10*6/uL Hgb 14.2 (14.0-18.0) g/dl Hct 42.2 (42.0-52.0) % MCV 86.8 (80.0-98.0) fL MCH 29.2 (27.0-33.0) pg MCHC 33.6 (31.0-36.0) g/dl RDW 14.2 (11.0-16.0) % Plt Count 227 D (160-400) X10*3/uL MPV 9.8 (9.4-12.4) fL Immature Gran % (Auto) 0.2 (0.0-0.4) % Neut % (Auto) 25.3 L (45-73) % Lymph % (Auto) 65.5 H (20-40) % [place] % (Auto) 7.6 (2-11) % Eos % (Auto) 0.6 (0-4) % Baso % (Auto) 0.8 (0-2) % Lymph # (Auto) 3.5 (1.2-4.9) X10*3/uL [place] # (Auto) 0.4 (0.1-1.2) X10*3/uL Eos # (Auto) 0.0 (0.0-0.4) X10*3/uL Baso # (Auto) 0.0 (0.0-0.2) X10*3/uL Abs Immat Gran (auto) 0.01 (0.00-0.03) X10*3/uL Absolute Neuts (auto) 1.3 L (2.0-8.3) x10*3/uL Absolute Nucleated RBC 0.000 (0.0-0.012) X10*3/uL Nucleated RBC % (auto) 0.0 (0.0-0.2) /100WBC Smear Tech's Comments VERIFIED PT 11.0 (10.0-13.1) SEC INR 1.0 (0.9-1.1) APTT 31.5 (26.0-36.4) SEC D-Dimer High Sensitivty < 150 NG/ML Sodium (135-145) mmol/L Potassium (3.3-5.1) mmol/L Chloride (96-108) mmol/L Carbon Dioxide (22-29) mmol/L Anion Gap (12-20) BUN (9-16) mg/dL Creatinine (0.5-1.4) mg/dL Estim Creat Clear Calc Estimated GFR Random Glucose (60-115) mg/dL Calcium (8.4-10.2) mg/dL Total Bilirubin (0.0-1.0) mg/dL AST (5-37) U/L ALT (0-40) U/L Alkaline Phosphatase (39-117) U/L Troponin I High Sens (<3.5-35.0) ng/L B-Natriuretic Peptide (<100) pg/mL Total Protein (6.5-8.0) g/dL Albumin (3.5-5.0) g/dL Influenza Type A (PCR) NEGATIVE (Negative) Influenza Type B (PCR) NEGATIVE (Negative) RSV RNA Qual (PCR) NEGATIVE (Negative) SARS-CoV-2 RNA (RT-PCR) NEGATIVE (Negative) <Luz Marina Arriaga MD - Last Filed: 11/17/22 16:59> Independent Interpretation I performed an independent interpretation of an: EKG <Luz Marina Arriaga MD - Last Filed: 11/17/22 16:59> Interpretation: Sinus tachycardia, HR-113, no STEMI, FL/QRS/QTC are within normal limits. <Luz Marina Arriaga MD - Last Filed: 11/17/22 16:59> Radiology Impression Radiologist Impression: My interpretation is in agreement with radiology's impression of the imaging study. <Luz Marina Arriaga MD - Last Filed: 11/17/22 16:59> External Record Review External record reviewed: Outpatient record and Prior outpatient labs <Luz Marina Arriaga MD - Last Filed: 11/17/22 16:59> Chronic Conditions Patient?s care impacted by: Other <Luz Marina Arriaga MD - Last Filed: 11/17/22 16:59> Alcohol use disorder <Luz Marina Arriaga MD - Last Filed: 11/17/22 16:59> Discharge Plan Discharge Clinical Impression: Atypical chest pain, Acute costochondritis <BASSAM Murphy - Last Filed: 11/30/22 12:47> Patient Disposition: Home, Self-Care <ABSSAM Murphy - Last Filed: 11/30/22 12:47> Instructions: Costochondritis (ED), Chest Wall Pain (ED) <BASSAM Murphy - Last Filed: 11/30/22 12:47> Additional Instructions: 1. Tylenol 1000 mg, orally, every 6 hours as needed for pain control. Do not exceed 4000 mg within 24 hours. 2. Ibuprofen 400 mg, orally with milk or food, every 6 hours as needed for pain control. Please combine this with Tylenol for additional symptom relief. 3. Lidocaine patch, apply to area of maximal tenderness as directed on the outsi de packaging. 4. Please follow-up with primary care provider in the next 1-2 days. Return to the ER for any worsening of symptoms. <BASSAM Murphy - Last Filed: 11/30/22 12:47> Prescriptions: No Action naltrexone 50 mg tablet 50 mg PO DAILY Qty: 30 3RF gabapentin 300 mg capsule 300 mg PO BID 30 Days Qty: 60 0RF <BASSAM Murphy - Last Filed: 11/30/22 12:47> Stand Alone Forms: Work/School Release <BASSAM Murphy - Last Filed: 11/30/22 12:47> Interventions: ED Discharge Assessment Last Done: 11/17/22 17:20 <BASSAM Murphy - Last Filed: 11/30/22 12:47> Discharge Date/Time: 11/17/22 17:21 <BASSAM Murphy - Last Filed: 11/30/22 12:47>
[2022-11-17 12:59] LABS: Basophils Percent Auto 0.8 % (0-2); Eosinophils Percent Auto 0.6 % (0-4); Hematocrit 42.2 % (42.0-52.0); Hemoglobin 14.2 g/dl (14.0-18.0); Imm Gran Abs Auto 0.01 X10*3/uL (0.00-0.03); Imm Gran Pct Auto 0.2 % (0.0-0.4); Lymphocytes Absolute Auto 3.5 X10*3/uL (1.2-4.9); Lymphocytes Percent Auto 65.5 % (20-40); MANUAL DIFF FLAG SCAN; Mean Corpuscular HGB Conc 33.6 g/dl (31.0-36.0); Mean Corpuscular Hemoglobin 29.2 pg (27.0-33.0); Mean Corpuscular Volume 86.8 fL (80.0-98.0); Mean Platelet Volume 9.8 fL (9.4-12.4); Monocytes Absolute Auto 0.4 X10*3/uL (0.1-1.2); Monocytes Percent Auto 7.6 % (2-11); Neutrophils Absolute Auto 1.3 x10*3/uL (2.0-8.3); Neutrophils Percent Auto 25.3 % (45-73); Platelet Count 227 X10*3/uL (160-400); Red Blood Count 4.86 X10*6/uL (4.60-5.80); Red Cell Distribution Width 14.2 % (11.0-16.0); SCAN SMEAR FLAG 1; White Blood Count 5.3 X10*3/uL (4.8-10.8)
[2022-11-17 13:15] LABS: Alanine Aminotransferase 48 U/L (0-40); Albumin Level 4.8 g/dL (3.5-5.0); Alkaline Phosphatase 109 U/L (39-117); Anion Gap 19 (12-20); Aspartate Amino Transferase 60 U/L (5-37); Bilirubin Total 0.5 mg/dL (0.0-1.0); Blood Urea Nitrogen 9 mg/dL (9-16); Calcium 9.1 mg/dL (8.4-10.2); Carbon Dioxide 24 mmol/L (22-29); Chloride 101 mmol/L (96-108); Creatinine Clr Calc Pharmacy 125.9; Estimated Glomerular Filt Rate > 60; Glucose Random 97 mg/dL (60-115); Potassium 3.5 mmol/L (3.3-5.1); Sodium 140 mmol/L (135-145); Total Protein 7.9 g/dL (6.5-8.0)
[2022-11-17 13:18] LABS: D Dimer High Sensitivity < 150 NG/ML
[2022-11-17 13:20] LABS: SLIDE REVIEW VERIFIED
[2022-11-17 13:21] LABS: B Type Natriuretic Peptide < 10 pg/mL (<100); Troponin-I High Sensitivity < 3.5 ng/L (<3.5-35.0)
[2022-11-17 13:31] LABS: Partial Thromboplastin Time 31.5 SEC (26.0-36.4)
[2022-11-17 13:45] LABS: Influenza A PCR NEGATIVE (Negative); Influenza B PCR NEGATIVE (Negative); Resp Syncy Virus RNA Qual PCR NEGATIVE (Negative); SARS COV2 PCR INHOUSE NEGATIVE (Negative)
[2022-11-17 15:26] VITALS: BP 118/74; PULSE 90; RESP 18; TEMP 36.4; O2SAT 97
[2022-11-17] MEDS: Lidocaine HCl Viscous 2 % 15 ML SOLUTION 10 ML MUCOUS MEM (17:11)
[2022-11-17] MEDS: Magnesium Hydrox/Alum Hydrox 30 ML ORAL.SUSP PO (17:11)
[2022-11-17] MEDS: Ibuprofen 400 MG TABLET PO (17:11)
[2022-11-17] MEDS: Acetaminophen 325 MG TABLET 975 MG PO (17:12)
--- NOTE | 2022-11-17 17:19 | PC.NURSE ---
PT MEDICATED AT TIME OF DISCHARGE FOR CHEST AND EPIGASTRIC PAIN. HE IS AGREEABLE TO DISCHARGE PLAN. HE REMAIN IN A NSR ON THE MONITOR
== END 2022-11-17 17:21 | disposition home or self-care (01) ==
PROVIDERS: Physician Assistant; Emergency Provider Student in an Organized Health Care Education/Training Program
DX: R07.89 Other chest pain (principal); M94.0 Chondrocostal junction syndrome [Tietze]; R06.02 Shortness of breath; Z20.822 Contact with and (suspected) exposure to COVID-19; Z20.828 Contact with and (suspected) exposure to other viral communicable diseases; Z79.899 Other long term (current) drug therapy
CPT/HCPCS: 0241U; 36415; 80053; 83880; 84484; 85025; 85379; 85610; 85730; 93005; 99283; 99285

== ENCOUNTER 2023-04-14 17:02 | Inpatient (IN) | payer SELFPAY ==
[2023-04-14 17:07] VITALS: BP 149/99; PULSE 90; RESP 18; TEMP 36.7; O2SAT 98
--- NOTE | 2023-04-14 17:11 | ED_ITS ---
HPI - Psych General Chief Complaint: Overdose Stated Complaint: SI ATTEMPT Time Seen by Provider: 04/14/23 17:04 Source: EMS Mode of arrival: EMS Limitations: other (Somnolent, confused) History of Present Illness HPI Narrative: Patient comes to emergency room via EMS. Earlier today, patient attempted to commit suicide by ingesting 60 tablets of gabapentin 300 mg each. Patient also took 6-8 tablets of ibuprofen. Patient's girlfriend arrived home couple of hours ago, found the patient in bed. Patient was awake, there was a suicide note at the patient's bedside. Patient called EMS and police department. PD Section 12 the patient. At this time, patient is awake, somnolent, seems a bit confused, admits to taking a whole bottle of gabapentin. Patient does not remember how many tablets. Reviewing patient's pharmacy records, patient picked up a bottle of gabapentin on 01/17/2023, 60 tablets, 300 mg each. Patient complaining of epigastric pain. Related Data Home Medications Medication Instructions Recorded Confirmed fluoxetine 10 mg capsule 30 mg PO DAILY 04/14/23 04/14/23 gabapentin 300 mg capsule 300 mg PO BID 04/14/23 04/14/23 Allergies Allergy/AdvReac Type Severity Reaction Status Date / Time No Known Allergies Allergy Verified 01/02/22 13:27 [No Known Allergies*] Review of Systems Review of Systems: Constitutional : No Weight loss, No Fever, No Chills, No Night Sweats, No Fatigue, No Malaise ENT/Mouth : No Hearing loss, No Ear Pain, No Nasal Congestion, No Sinus Pain, No Hoarseness, No sore throat, No Rhinorrhea, No Swallowing Difficulty Eyes: No Eye Pain, No Swelling, No Redness, No Foreign Body, No Discharge, No Vision Changes Cardiovascular : No Chest Pain, No SOB, No Dyspnea on Exertion, No Orthopnea, No Edema, No Palpitations Respiratory : No Cough, No Sputum, No Wheezing, No Smoke Exposure, No Dyspnea Gastrointestinal : No Nausea, No Vomiting, No Diarrhea, No Constipation, complaining of epigastric pain. Genitourinary : no irregular bleeding, No Dysuria, No Urinary Frequency, No Hematuria, No Urinary Incontinence, No Urgency, No Flank Pain, No Urinary Flow Changes, No Hesitancy Musculoskeletal : No joint pain, No Myalgias, No Joint Swelling Skin : No Skin Lesions, No rash Neuro : No Weakness, No Numbness, No Paresthesias, No Loss of Consciousness, No Dizziness, No Headache Psych : SI attempt Heme/Lymph: No Bruising, No Bleeding,No Lymphadenopathy Endocrine : No Polyuria, No Polydipsia, No Temperature Intolerance PMF Past Medical History Medical History (Updated 04/14/23 @ 17:26 by Soledad Arevalo MD) Alcohol use disorder, moderate, dependence HTN (hypertension) Suicide attempt Surgical History H/O wrist surgery Social History Social History Alcohol intake: current Smoked in Last 30 Days: Yes Use of substances other than those prescribed or required for medical reasons: No Advance Directives: No Advance Directives Information Provided: No Physical Exam Vital Signs: Vital Signs: Last Vital Signs Temp 98.1 F 04/14/23 17:07 Pulse 90 04/14/23 17:07 Resp 18 04/14/23 17:07 BP 149/99 H 04/14/23 17:07 Pulse Ox 98 04/14/23 17:07 O2 Del Method Room Air 04/14/23 17:07 BMI result Body Mass Index 24.4 Const: Other: Appearance: Alert. Oriented X3. No acute distress. Somnolent, confused Eyes: Pupils equal, round and reactive to light. ENT: Pharynx normal. Neck: Normal inspection. Neck supple. No lymph nodes noted. No crepitus CVS: Normal heart rate and rhythm. Pulses normal. Normal S1 and S2 Respiratory: No respiratory distress. Breath sounds normal. No Wheezing. No rales Abdomen: Soft and nontender. No rigidity. No distention. Skin: Skin warm and dry. Normal skin color. Normal skin turgor. Extremities: No lower extremity edema. No Lacerations. No Rash Neuro: Oriented X 3. No motor deficit. No sensory deficit. Moving all extremities. No slurred speech. CN 2 through 12 grossly intact Psych: calm, cooperative, normal affect Course Course Course Narrative: -all of patient's labs pending -patient is on a one-to-one with a sitter -poison Control has been contacted -patient came in on a Section 12 started by police department Medical Decision Making Medical Decision Making [facility] Narrative: -my interpretation of labs: At baseline, no acute abnormalities. ETOH 242. -19:30, patient remains awake, alert and oriented x3. -patient remains on a Section 12 -patient was seen by the care team, patient will be revaluated in the morning, likely to be inpatient bed search Differential Diagnosis Differential Diagnoses: The differential diagnosis associated with the presentation includes (Anxiety, depression, suicide attempt, polysubstance abuse, alcohol abuse) Admission/Observation Consideration of admission/observation: Escalation of care including admission/observation considered (Patient likely to be admitted to the inpatient floor. Patient will remain under observation until tomorrow for evaluation) Consult Healthcare Provider Management of the patient was discussed with: Behavioral Health Provider Lab Data MDM Lab Attestation statement: I reviewed the patient's lab results. 04/14/23 18:21 04/14/23 18:21 Labs: Lab Results 04/14/23 04/14/23 04/14/23 Range/Units 18:21 18:21 18:21 WBC 5.6 (4.8-10.8) X10*3/uL RBC 5.13 (4.60-5.80) X10*6/uL Hgb 14.1 (14.0-18.0) g/dl Hct 42.9 (42.0-52.0) % MCV 83.6 (80.0-98.0) fL MCH 27.5 (27.0-33.0) pg MCHC 32.9 (31.0-36.0) g/dl RDW 14.3 (11.0-16.0) % Plt Count 224 (160-400) X10*3/uL MPV 10.0 (9.4-12.4) fL Immature Gran % (Auto) 0.2 (0.0-0.4) % Neut % (Auto) 33.7 L (45-73) % Lymph % (Auto) 58.7 H (20-40) % [place] % (Auto) 6.7 (2-11) % Eos % (Auto) 0.2 (0-4) % Baso % (Auto) 0.5 (0-2) % Lymph # (Auto) 3.3 (1.2-4.9) X10*3/uL [place] # (Auto) 0.4 (0.1-1.2) X10*3/uL Eos # (Auto) 0.0 (0.0-0.4) X10*3/uL Baso # (Auto) 0.0 (0.0-0.2) X10*3/uL Abs Immat Gran (auto) 0.01 (0.00-0.03) X10*3/uL Absolute Neuts (auto) 1.9 L (2.0-8.3) x10*3/uL Absolute Nucleated RBC 0.000 (0.0-0.012) X10*3/uL Nucleated RBC % (auto) 0.0 (0.0-0.2) /100WBC PT (11.1-13.3) SEC INR (0.9-1.1) Sodium 144 (135-145) mmol/L Potassium 3.4 (3.3-5.1) mmol/L Chloride 105 (96-108) mmol/L Carbon Dioxide 24 (22-29) mmol/L Anion Gap 18 (12-20) BUN 7 L (9-16) mg/dL Creatinine 0.80 (0.5-1.4) mg/dL Estim Creat Clear Calc 130.1 Estimated GFR > 60 Random Glucose 80 (60-115) mg/dL Calcium 9.0 (8.4-10.2) mg/dL Magnesium 2.1 (1.6-2.6) mg/dL Total Bilirubin 0.6 (0.0-1.0) mg/dL Direct Bilirubin 0.2 (0.0-0.5) mg/dL AST 59 H (5-37) U/L ALT 39 (0-40) U/L Alkaline Phosphatase 90 (39-117) U/L Troponin I High Sens 7.7 D (<3.5-35.0) ng/L Total Protein 7.9 (6.5-8.0) g/dL Albumin 4.6 (3.5-5.0) g/dL Lipase 9 (8-78) U/L Salicylates (15-30) mg/dL Acetaminophen (<30) mcg/mL Ethyl Alcohol mg/dL COVID-19 ([facility]) (Negative) COVID-19 Clin Com 04/14/23 04/14/23 04/14/23 Range/Units 18:21 18:21 18:21 WBC (4.8-10.8) X10*3/uL RBC (4.60-5.80) X10*6/uL Hgb (14.0-18.0) g/dl Hct (42.0-52.0) % MCV (80.0-98.0) fL MCH (27.0-33.0) pg MCHC (31.0-36.0) g/dl RDW (11.0-16.0) % Plt Count (160-400) X10*3/uL MPV (9.4-12.4) fL Immature Gran % (Auto) (0.0-0.4) % Neut % (Auto) (45-73) % Lymph % (Auto) (20-40) % [place] % (Auto) (2-11) % Eos % (Auto) (0-4) % Baso % (Auto) (0-2) % Lymph # (Auto) (1.2-4.9) X10*3/uL [place] # (Auto) (0.1-1.2) X10*3/uL Eos # (Auto) (0.0-0.4) X10*3/uL Baso # (Auto) (0.0-0.2) X10*3/uL Abs Immat Gran (auto) (0.00-0.03) X10*3/uL Absolute Neuts (auto) (2.0-8.3) x10*3/uL Absolute Nucleated RBC (0.0-0.012) X10*3/uL Nucleated RBC % (auto) (0.0-0.2) /100WBC PT 11.3 (11.1-13.3) SEC INR 0.9 (0.9-1.1) Sodium (135-145) mmol/L Potassium (3.3-5.1) mmol/L Chloride (96-108) mmol/L Carbon Dioxide (22-29) mmol/L Anion Gap (12-20) BUN (9-16) mg/dL Creatinine (0.5-1.4) mg/dL Estim Creat Clear Calc Estimated GFR Random Glucose (60-115) mg/dL Calcium (8.4-10.2) mg/dL Magnesium (1.6-2.6) mg/dL Total Bilirubin (0.0-1.0) mg/dL Direct Bilirubin (0.0-0.5) mg/dL AST (5-37) U/L ALT (0-40) U/L Alkaline Phosphatase (39-117) U/L Troponin I High Sens (<3.5-35.0) ng/L Total Protein (6.5-8.0) g/dL Albumin (3.5-5.0) g/dL Lipase (8-78) U/L Salicylates < 5.0 L (15-30) mg/dL Acetaminophen < 17 (<30) mcg/mL Ethyl Alcohol mg/dL COVID-19 ([facility]) Negative (Negative) COVID-19 Clin Com See Note 04/14/23 Range/Units 18:21 WBC (4.8-10.8) X10*3/uL RBC (4.60-5.80) X10*6/uL Hgb (14.0-18.0) g/dl Hct (42.0-52.0) % MCV (80.0-98.0) fL MCH (27.0-33.0) pg MCHC (31.0-36.0) g/dl RDW (11.0-16.0) % Plt Count (160-400) X10*3/uL MPV (9.4-12.4) fL Immature Gran % (Auto) (0.0-0.4) % Neut % (Auto) (45-73) % Lymph % (Auto) (20-40) % [place] % (Auto) (2-11) % Eos % (Auto) (0-4) % Baso % (Auto) (0-2) % Lymph # (Auto) (1.2-4.9) X10*3/uL [place] # (Auto) (0.1-1.2) X10*3/uL Eos # (Auto) (0.0-0.4) X10*3/uL Baso # (Auto) (0.0-0.2) X10*3/uL Abs Immat Gran (auto) (0.00-0.03) X10*3/uL Absolute Neuts (auto) (2.0-8.3) x10*3/uL Absolute Nucleated RBC (0.0-0.012) X10*3/uL Nucleated RBC % (auto) (0.0-0.2) /100WBC PT (11.1-13.3) SEC INR (0.9-1.1) Sodium (135-145) mmol/L Potassium (3.3-5.1) mmol/L Chloride (96-108) mmol/L Carbon Dioxide (22-29) mmol/L Anion Gap (12-20) BUN (9-16) mg/dL Creatinine (0.5-1.4) mg/dL Estim Creat Clear Calc Estimated GFR Random Glucose (60-115) mg/dL Calcium (8.4-10.2) mg/dL Magnesium (1.6-2.6) mg/dL Total Bilirubin (0.0-1.0) mg/dL Direct Bilirubin (0.0-0.5) mg/dL AST (5-37) U/L ALT (0-40) U/L Alkaline Phosphatase (39-117) U/L Troponin I High Sens (<3.5-35.0) ng/L Total Protein (6.5-8.0) g/dL Albumin (3.5-5.0) g/dL Lipase (8-78) U/L Salicylates (15-30) mg/dL Acetaminophen (<30) mcg/mL Ethyl Alcohol 242 mg/dL COVID-19 ([facility]) (Negative) COVID-19 Clin Com Independent Interpretation I performed an independent interpretation of an: EKG (My interpretation of EKG: Normal sinus rhythm, heart rate 96, no ST segment depression or elevation, no T- wave inversion, QTC 462) Discharge Plan Discharge Clinical Impression: Suicide attempt Patient Disposition: Still a Patient Prescriptions: No Action naltrexone 50 mg tablet 50 mg PO DAILY Qty: 30 3RF gabapentin 300 mg capsule 300 mg PO BID 30 Days Qty: 60 0RF Interventions: Spencer-Suicide Risk Severity Scale Last Done: 04/14/23 17:41
--- NOTE | 2023-04-14 17:11 | ECG_ITS ---
Test Reason : overdose Blood Pressure : / mmHG Vent. Rate : 096 BPM Atrial Rate : 096 BPM P-R Int : 134 ms QRS Dur : 088 ms QT Int : 366 ms P-R-T Axes : 071 039 055 degrees QTc Int : 462 ms Normal sinus rhythm Normal ECG When compared with ECG of 17-NOV-2022 12:41, Heart rate has decreased Referred By: Soledad Arevalo Electronically Signed By:APMELA CRISTINA
[2023-04-14 17:28] VITALS: BMI 24.4
[2023-04-14 17:31] VITALS: BP 153/71; PULSE 99; O2SAT 99
--- NOTE | 2023-04-14 17:36 | PC.NURSE ---
Patient presents after suicide attempt a few hours prior to arrival. Patient is slow to answer questions at this time and is vague with his answers with this provider. Patient with recent history of increased depression. found patient in bed with note next to him. Poison control called and spoke with Sigrid, recommendations for supportive care and monitor vitals closely at this time. Patient to be reevaled in the morning.
[2023-04-14 18:26] LABS: MANUAL DIFF FLAG NO
[2023-04-14 18:33] LABS: Basophils Percent Auto 0.5 % (0-2); Eosinophils Percent Auto 0.2 % (0-4); Hematocrit 42.9 % (42.0-52.0); Hemoglobin 14.1 g/dl (14.0-18.0); Imm Gran Abs Auto 0.01 X10*3/uL (0.00-0.03); Imm Gran Pct Auto 0.2 % (0.0-0.4); Lymphocytes Absolute Auto 3.3 X10*3/uL (1.2-4.9); Lymphocytes Percent Auto 58.7 % (20-40); Mean Corpuscular HGB Conc 32.9 g/dl (31.0-36.0); Mean Corpuscular Hemoglobin 27.5 pg (27.0-33.0); Mean Corpuscular Volume 83.6 fL (80.0-98.0); Monocytes Absolute Auto 0.4 X10*3/uL (0.1-1.2); Monocytes Percent Auto 6.7 % (2-11); Neutrophils Absolute Auto 1.9 x10*3/uL (2.0-8.3); Neutrophils Percent Auto 33.7 % (45-73); Platelet Count 224 X10*3/uL (160-400); Red Blood Count 5.13 X10*6/uL (4.60-5.80); Red Cell Distribution Width 14.3 % (11.0-16.0); White Blood Count 5.6 X10*3/uL (4.8-10.8)
--- NOTE | 2023-04-14 18:35 | PC.NURSE ---
Please contact [place] with plan [phone].
[2023-04-14 18:38] LABS: Ethanol 242 mg/dL
[2023-04-14 18:39] LABS: COVID-19 Test Negative (Negative); IDNOW Serial# 08D9AD1C
[2023-04-14 18:41] LABS: Alanine Aminotransferase 39 U/L (0-40); Albumin Level 4.6 g/dL (3.5-5.0); Alkaline Phosphatase 90 U/L (39-117); Anion Gap 18 (12-20); Aspartate Amino Transferase 59 U/L (5-37); Bilirubin Direct 0.2 mg/dL (0.0-0.5); Bilirubin Total 0.6 mg/dL (0.0-1.0); Blood Urea Nitrogen 7 mg/dL (9-16); Carbon Dioxide 24 mmol/L (22-29); Chloride 105 mmol/L (96-108); Creatinine Clr Calc Pharmacy 130.1; Estimated Glomerular Filt Rate > 60; Glucose Random 80 mg/dL (60-115); Lipase 9 U/L (8-78); Magnesium 2.1 mg/dL (1.6-2.6); Potassium 3.4 mmol/L (3.3-5.1); Sodium 144 mmol/L (135-145); Total Protein 7.9 g/dL (6.5-8.0)
[2023-04-14 18:42] LABS: Acetaminophen LAB < 17 mcg/mL (<30); Salicylate < 5.0 mg/dL (15-30)
[2023-04-14 18:48] LABS: Troponin-I High Sensitivity 7.7 ng/L (<3.5-35.0)
[2023-04-14 19:01] LABS: INTERNATIONAL NORM RATIO 0.9 (0.9-1.1); Prothrombin Time 11.3 SEC (11.1-13.3)
--- NOTE | 2023-04-14 19:26 | MHC.RECOVSUP ---
? Reason for consult:SI attempt o? Current location:ED08 ? o? Identified substance use concern:? -? Support ? Intervention: o? Community resources provided o? Harm reduction discussion ? Plan: o? Patient awaiting crisis evaluation ? Additional information: met with this pt and discussed treatment options, pt was unsure of what he wanted to do. provided this pt with recovery resources and contact information so this pt can obtain outpatient services. Provider informed.
[2023-04-14 20:12] LABS: Appearance Urine Clear; Color Urine Yellow; Glucose Urine UA Negative (Negative); Leukocyte Esterase Urine Negative (Negative); Nitrite Urine Negative (Negative); Specific Gravity - Urine 1.025 (1.005-1.025); UMIC TRIGGER UACC YES; Urine Blood Negative (Negative); Urine Ketones 80 mg/dL (Negative); Urine Protein 30 (1+) mg/dL (Neg-Trace)
[2023-04-14 20:17] LABS: Bacteria Urine None Seen (None Seen); Hyaline Casts Urine 0-2 /LPF (0-2); Squamous Epithelial Cell Urine 0-2 /HPF (0-2); WBC Urine 0-5 /HPF (0-5)
[2023-04-14 20:22] LABS: Amphetamine Screen Urine Not Detected (Not Detect); Barbiturates, Urine Not Detected (Not Detect); Benzodiazepines Screen Urine Not Detected (Not Detect); Cannabinoid Screen Urine POSITIVE (Not Detect); Cocaine Screen Urine Not Detected (Not Detect); Fentanyl, urine Not Detected (Not Detect); Opiate Screen Urine Not Detected (Not Detect); Phencyclidine Screen Urine Not Detected (Not Detect)
--- NOTE | 2023-04-15 04:56 | PC.NURSE ---
Patient slept through the night, no distress observed/reported, behavior pleasant and non concerning, medically cleared after overdosing on Gabapentin, patient engaged well with care team during evaluation, disposition is section 12 inpatient bed search, labs completed/resulted, med rec completed/pending provider's approval, VSS, will continue to monitor.
[2023-04-15 06:18] VITALS: BP 142/77; PULSE 94; RESP 16; TEMP 36.4; O2SAT 97
--- NOTE | 2023-04-15 07:15 | PC.NURSE ---
Report received from Carlos A RN & care transferred at this time Per report pt to [facility] for attempted overdose with Gabapentin. Pt endorses increasing life stressors, loss of insurance, inability to access antidepressant medication as precipitating factors to overdose attempt. Pt currently Section 12, med rec complete, care team evaluation complete, q15 minute checks in [address], bed search in progress. Pt currently resting quietly in bed, appears in NAD. RR even and unlabored bilatearlly on RA. WCTA
--- NOTE | 2023-04-15 11:47 | PC.NURSE ---
This RN spoke with Ugo from poison control this morning regarding patient assessment, orientation, vitals, labs. Poison control recommending repeat LFT lab due to elevation of AST. Dr. Velasquez notified and stated that patient is chronically elevated, and only marginally outside of reference range. Will notify poison control when they callback. Pt pending admit to [facility].
[2023-04-15 14:31] VITALS: BP 146/85; PULSE 78; RESP 16; TEMP 36.5; O2SAT 100
[2023-04-15] MEDS: Nicotine Polacrilex 2 MG GUM 4 MG BUCCAL ×3 (15:57→21:27)
[2023-04-15] MEDS: Nicotine 21 MG PATCH.TD24 TRANSDERMA (15:57)
[2023-04-15] MEDS: Losartan Potassium 50 MG TABLET 100 MG PO (15:57)
[2023-04-15] MEDS: hydroCHLOROthiazide 12.5 MG TABLET PO (16:40)
[2023-04-15 16:55] VITALS: BMI 22.8
--- NOTE | 2023-04-15 17:29 | PC.NURSE ---
This is the first [facility] psych admission for Josemanuel who was admitted to [facility] at 1415 from [facility] on CV for treatment of depression and polysubstance abuse with overdose on gabapentin 04/14/23. Crisis evaluation indicates this was an intentional overdose and there was a suicide note. Patient refutes this and states, it's a blur. The note was just to say how much I love my and daughter. I had been drinking, I don't remember wanting to . Pt confirms a history of alcohol abuse with one detox admission and remote history of involvement in AA. He says he has been drinking 6 nips per day for the last 4 days, maybe more on the day of overdose. Stressors include recent unexpected deaths of mother and his best friend from childhood, loss of employment, loss of insurance and inability to take his prescribed meds due to lack of insurance. He smokes < 1 ppd cigarettes and uses marijuana daily. On arrival to [facility] Josemanuel is alert, fully oriented, pleasant and cooperative with admission process. Mood is depressed. Affect is sad and anxious. Josemanuel expresses a lot of shame about his relapse on alcohol and his overdose. Thought Process is linear with no overt psychosis noted. Josemanuel denies ideation, plan or intent to harm self or others.Appetite is poor with recent wt loss of > 5 lbs. Sleep is poor with frequent waking. Focus is good. Patient has diagnosis of hypertension. he denies physical complaint at present.Josemanuel is placed on q 15 minute checks for safety.
[2023-04-15 20:19] VITALS: BP 153/89; PULSE 76; TEMP 36.8; O2SAT 99
[2023-04-15] MEDS: traZODone HCL 50 MG TABLET PO (22:55)
[2023-04-15] MEDS: hydrOXYzine HCL 25 MG TABLET PO (22:55)
[2023-04-16 06:00] VITALS: BP 130/79; PULSE 85; RESP 16; TEMP 36.4; O2SAT 100
[2023-04-16 07:00] VITALS: BMI 22.5
[2023-04-16] MEDS: LOSARTAN POTASSIUM 100 MG PO (09:35)
[2023-04-16] MEDS: Nicotine 21 MG PATCH.TD24 TRANSDERMA (09:35)
[2023-04-16] MEDS: HYDROCHLOROTHIAZIDE 12.5 MG PO (09:35)
[2023-04-16] MEDS: Nicotine Polacrilex 2 MG GUM 4 MG BUCCAL ×5 (09:36→21:44)
[2023-04-16] MEDS: Cyanocobalamin (Vitamin B-12) 500 MCG TABLET PO (09:36)
[2023-04-16 09:47] LABS: Alanine Aminotransferase 53 U/L (0-40); Albumin Level 4.7 g/dL (3.5-5.0); Alkaline Phosphatase 88 U/L (39-117); Anion Gap 16 (12-20); Aspartate Amino Transferase 86 U/L (5-37); Bilirubin Total 1.2 mg/dL (0.0-1.0); Blood Urea Nitrogen 6 mg/dL (9-16); Carbon Dioxide 27 mmol/L (22-29); Chloride 99 mmol/L (96-108); Cholesterol 271 mg/dL (<200); Estimated Glomerular Filt Rate > 60; Glucose Fasting 86 mg/dL (60-99); HDL Cholesterol 54 mg/dL (>40); LDL Cholesterol Calculated 175 mg/dL (<100); Potassium 3.4 mmol/L (3.3-5.1); Sodium 139 mmol/L (135-145); Total Protein 8.1 g/dL (6.5-8.0); Triglycerides 214 mg/dL (<150)
[2023-04-16 09:54] LABS: Free T4 (Free Thyroxine) 0.99 ng/dL (0.71-1.85); Thyroid Stimulating Hormone 0.91 uIU/mL (0.32-4.0)
[2023-04-16 09:58] LABS: Folate 13.5 ng/mL (> or = 4.0); Vitamin B12 787 pg/mL (200-900)
[2023-04-16 10:28] LABS: Estimated Average Glucose 108 mg/dL; Hemoglobin A1C 131.5374 umol/L; Hemoglobin A1c % 5.4 % (<6.0)
--- NOTE | 2023-04-16 11:19 | HO.PSYADMNOT ---
HPI Date of Service: 04/16/23 Chief Complaint: SI ATTEMPT HPI Narrative: per CARE team evaluation, pt was BIBA after his found him down and unresponsive when she returned from work. he had apparently gotten intoxicated and then taken a bottle of gabapentin 300 mg pills; he also had left a suicide note for his and 1 yo daughter. once awakening, he endorsed SI and denied any recollection of having written the suicide note. he reported psychosocial stressors of loss of his mother last year and having lost his job several months ago. he had started prozac recently but went of the medication several weeks ago when he was unable to obtain a script renewal. on interview with MD, pt reports he recently has been applying for lots of jobs and doing interviews. he has been stressed about money and got Realy down for some reason on thursday; perhaps bcse one of the jobs got back to him with a salary which was very much lower than what hd been represented during the interview. he was also feeling stressed he had been unable to get his prozac refilled. he lapsed to alcohol use for only the second time since having completed a detox in december of 2022 (which is when he had been prescribed the prozac). he believes he drank 4-6 nips and he was also taking gabapentin pills along with the nips. he states he was just trying to take the edge off of feeling overwhelmed, and he felt like he was getting buzzed. but then he started to feel very tired and got concerned about what he had done. he states the next thing he can recall is waking up in the hospital. he is very regretful of his behavior and adamantly denies SI currently. he is interested in F/U with therapy and psych MD and also in restarting prozac and naltrexone, which he had been on during treatment with [facility] previously. he is also interested in reestablishing himself in Tx with [facility]. Past Psychiatric History: hosps: none prior SA: none prior SIB: denies HIB: denies outpt: none current. h/o therapy about 5 years ago (depression during/after bad breakup ). started prozac 12/2022 while at alcohol detox. 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 Medical Evaluation Reviewed: Yes [facility] Medical History (Updated 04/16/23 @ 14:24 by Preston Leblanc) Alcohol use disorder, moderate, dependence HTN (hypertension) Suicide attempt Surgical History H/O wrist surgery Family History: uncles - alcohol Social History: , 1 yo daughter. currently unemployed, making job applications. Substance History: tobacco - about 0.5-0.75 ppd cannabis - 4-6 days per week alcohol - h/o dependence. h/o detox 12/2022. h/o naltrexone through [facility]. 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 Trauma History: reported emotional, other trauma Hx Diagnostics Vital Signs (24Hr): Vital Signs - 24 hr 04/15/23 14:31 04/15/23 20:19 04/16/23 06:00 Temperature 97.7 F 98.2 F 97.6 F Pulse Rate 78 76 85 Respiratory Rate 16 16 Blood Pressure 146/85 H 153/89 H 130/79 Pulse Oximetry 100 99 100 Oxygen Delivery Method Room Air Room Air Room Air BMI result Body Mass Index 22.5 Labs 04/14/23 18:21 04/16/23 08:06 Labs: Laboratory Results - last 48 hr 04/14/23 04/14/23 04/14/23 18:21 18:21 18:21 WBC 5.6 RBC 5.13 Hgb 14.1 Hct 42.9 MCV 83.6 MCH 27.5 MCHC 32.9 RDW 14.3 Plt Count 224 MPV 10.0 Immature Gran % (Auto) 0.2 Neut % (Auto) 33.7 L Lymph % (Auto) 58.7 H Barnwell % (Auto) 6.7 Eos % (Auto) 0.2 Baso % (Auto) 0.5 Lymph # (Auto) 3.3 Barnwell # (Auto) 0.4 Eos # (Auto) 0.0 Baso # (Auto) 0.0 Abs Immat Gran (auto) 0.01 Absolute Neuts (auto) 1.9 L Absolute Nucleated RBC 0.000 Nucleated RBC % (auto) 0.0 PT INR Sodium 144 Potassium 3.4 Chloride 105 Carbon Dioxide 24 Anion Gap 18 BUN 7 L Creatinine 0.80 Estim Creat Clear Calc 130.1 Estimated GFR > 60 Random Glucose 80 Fasting Glucose Estimat Average Glucose Hemoglobin A1c % Calcium 9.0 Magnesium 2.1 Total Bilirubin 0.6 Direct Bilirubin 0.2 AST 59 H ALT 39 Alkaline Phosphatase 90 Troponin I High Sens 7.7 D Total Protein 7.9 Albumin 4.6 Triglycerides Cholesterol LDL Cholesterol, Calc HDL Cholesterol Lipase 9 Vitamin B12 Folate TSH Free T4 Urine Color Urine Appearance Urine pH Ur Specific Skipwith Urine Protein Urine Glucose (UA) Urine Ketones Urine Blood Urine Nitrite Ur Leukocyte Esterase Urine RBC Urine WBC Ur Squamous Epith Cells Urine Bacteria Hyaline Casts Salicylates Urine Opiates Screen Urine Fentanyl Screen Acetaminophen Ur Barbiturates Screen Ur Phencyclidine Scrn Ur Amphetamines Screen U Benzodiazepines Scrn Urine Cocaine Screen U Marijuana (THC) Screen Ethyl Alcohol COVID-19 ([facility]) COVID-19 [facility] Com 04/14/23 04/14/23 04/14/23 18:21 18:21 18:21 WBC RBC Hgb Hct MCV MCH MCHC RDW Plt Count MPV Immature Gran % (Auto) Neut % (Auto) Lymph % (Auto) Barnwell % (Auto) Eos % (Auto) Baso % (Auto) Lymph # (Auto) Barnwell # (Auto) Eos # (Auto) Baso # (Auto) Abs Immat Gran (auto) Absolute Neuts (auto) Absolute Nucleated RBC Nucleated RBC % (auto) PT 11.3 INR 0.9 Sodium Potassium Chloride Carbon Dioxide Anion Gap BUN Creatinine Estim Creat Clear Calc Estimated GFR Random Glucose Fasting Glucose Estimat Average Glucose Hemoglobin A1c % Calcium Magnesium Total Bilirubin Direct Bilirubin AST ALT Alkaline Phosphatase Troponin I High Sens Total Protein Albumin Triglycerides Cholesterol LDL Cholesterol, Calc HDL Cholesterol Lipase Vitamin B12 Folate TSH Free T4 Urine Color Urine Appearance Urine pH Ur Specific Skipwith Urine Protein Urine Glucose (UA) Urine Ketones Urine Blood Urine Nitrite Ur Leukocyte Esterase Urine RBC Urine WBC Ur Squamous Epith Cells Urine Bacteria Hyaline Casts Salicylates < 5.0 L Urine Opiates Screen Urine Fentanyl Screen Acetaminophen < 17 Ur Barbiturates Screen Ur Phencyclidine Scrn Ur Amphetamines Screen U Benzodiazepines Scrn Urine Cocaine Screen U Marijuana (THC) Screen Ethyl Alcohol COVID-19 ([facility]) Negative COVID-19 [facility] Com See Note 04/14/23 04/14/23 04/14/23 18:21 20:06 20:06 WBC RBC Hgb Hct MCV MCH MCHC RDW Plt Count MPV Immature Gran % (Auto) Neut % (Auto) Lymph % (Auto) Barnwell % (Auto) Eos % (Auto) Baso % (Auto) Lymph # (Auto) Barnwell # (Auto) Eos # (Auto) Baso # (Auto) Abs Immat Gran (auto) Absolute Neuts (auto) Absolute Nucleated RBC Nucleated RBC % (auto) PT INR Sodium Potassium Chloride Carbon Dioxide Anion Gap BUN Creatinine Estim Creat Clear Calc Estimated GFR Random Glucose Fasting Glucose Estimat Average Glucose Hemoglobin A1c % Calcium Magnesium Total Bilirubin Direct Bilirubin AST ALT Alkaline Phosphatase Troponin I High Sens Total Protein Albumin Triglycerides Cholesterol LDL Cholesterol, Calc HDL Cholesterol Lipase Vitamin B12 Folate TSH Free T4 Urine Color Yellow Urine Appearance Clear Urine pH 6.0 Ur Specific Skipwith 1.025 Urine Protein 30 (1+) H Urine Glucose (UA) Negative Urine Ketones 80 Urine Blood Negative Urine Nitrite Negative Ur Leukocyte Esterase Negative Urine RBC 3-5 H Urine WBC 0-5 Ur Squamous Epith Cells 0-2 Urine Bacteria None Seen Hyaline Casts 0-2 Salicylates Urine Opiates Screen Not Detected Urine Fentanyl Screen Not Detected Acetaminophen Ur Barbiturates Screen Not Detected Ur Phencyclidine Scrn Not Detected Ur Amphetamines Screen Not Detected U Benzodiazepines Scrn Not Detected Urine Cocaine Screen Not Detected U Marijuana (THC) Screen POSITIVE H Ethyl Alcohol 242 COVID-19 ([facility]) COVID-19 Clin Com 04/16/23 04/16/23 04/16/23 08:06 08:06 08:06 WBC RBC Hgb Hct MCV MCH MCHC RDW Plt Count MPV Immature Gran % (Auto) Neut % (Auto) Lymph % (Auto) Barnwell % (Auto) Eos % (Auto) Baso % (Auto) Lymph # (Auto) Barnwell # (Auto) Eos # (Auto) Baso # (Auto) Abs Immat Gran (auto) Absolute Neuts (auto) Absolute Nucleated RBC Nucleated RBC % (auto) PT INR Sodium 139 Potassium 3.4 Chloride 99 Carbon Dioxide 27 Anion Gap 16 BUN 6 L Creatinine 0.79 Estim Creat Clear Calc 142.0 Estimated GFR > 60 Random Glucose Fasting Glucose 86 Estimat Average Glucose 108 Hemoglobin A1c % 5.4 Calcium 10.0 D Magnesium Total Bilirubin 1.2 H Direct Bilirubin AST 86 H ALT 53 H Alkaline Phosphatase 88 Troponin I High Sens Total Protein 8.1 H Albumin 4.7 Triglycerides 214 H Cholesterol 271 H LDL Cholesterol, Calc 175 H HDL Cholesterol 54 Lipase Vitamin B12 787 Folate 13.5 TSH 0.91 Free T4 0.99 Urine Color Urine Appearance Urine pH Ur Specific Skipwith Urine Protein Urine Glucose (UA) Urine Ketones Urine Blood Urine Nitrite Ur Leukocyte Esterase Urine RBC Urine WBC Ur Squamous Epith Cells Urine Bacteria Hyaline Casts Salicylates Urine Opiates Screen Urine Fentanyl Screen Acetaminophen Ur Barbiturates Screen Ur Phencyclidine Scrn Ur Amphetamines Screen U Benzodiazepines Scrn Urine Cocaine Screen U Marijuana (THC) Screen Ethyl Alcohol COVID-19 ([facility]) COVID-19 Clin Com Meds/Allergies Meds Home Medications Medication Instructions Recorded Confirmed Type fluoxetine 10 mg capsule 30 mg PO DAILY 04/14/23 04/14/23 History cyanocobalamin (vitamin B-12) 500 500 mcg PO DAILY 04/15/23 04/15/23 History mcg tablet losartan 100 1 tab PO DAILY 04/15/23 04/15/23 History mg-hydrochlorothiazide 12.5 mg tablet Allergies Allergies Allergy/AdvReac Type Severity Reaction Status Date / Time No Known Allergies Allergy Verified 01/02/22 13:27 [No Known Allergies*] Mental Status Exam Mental Status Exam Narrative: adequately dressed and well-groomed. cooperative. no PMA/PMR. speech nml rate, amount, loudness, tone, latency. thoughts linear and logical. affect constricted, normo-intense, non-labile. mood hopeful. some anxiety, depression, shame. denies SI/SIBI/HI/AVH. Assessment & Plan Assessment & Plan (1) Alcohol use disorder, moderate, dependence: Status: Acute Code(s): F10.20 - Alcohol dependence, uncomplicated (2) Depressive disorder: Status: Acute Code(s): F32.A - Depression, unspecified Plan start prozac 30 mg daily for depression. start naltrexone 50 mg daily for alcohol use disorder. addiction consult, refer to addiction outpt Tx. Patient educated on: diagnosis, substance abuse and therapeutic strategies Reason for continued inpatient stay Substantial Risk for: harm to self, inability to function and rapid decompensation Statement Statement: I have reviewed the history and physical and performed a pertinent examination on my patient. No changes have occurred unless specified. If the History and Physical was not performed prior to admission, the Hospitalist's service will be consulted for completing the admission physical. Time Spent With Patient Time: Total time managing care of this patient today __55__ minutes.
[2023-04-16] MEDS: FLUoxetine HCl 10 MG CAPSULE 30 MG PO (12:35)
[2023-04-16] MEDS: Naltrexone HCl 50 MG TABLET PO (12:35)
[2023-04-16 20:20] VITALS: BP 137/83; PULSE 87; RESP 16; TEMP 36.6; O2SAT 100
[2023-04-16] MEDS: traZODone HCL 50 MG TABLET PO (22:06)
[2023-04-16] MEDS: hydrOXYzine HCL 25 MG TABLET PO (22:06)
[2023-04-17 06:00] VITALS: PULSE 75; RESP 18; TEMP 36.9; O2SAT 98
[2023-04-17] MEDS: Nicotine 21 MG PATCH.TD24 TRANSDERMA (08:41)
[2023-04-17] MEDS: Cyanocobalamin (Vitamin B-12) 500 MCG TABLET PO (08:42)
[2023-04-17] MEDS: Naltrexone HCl 50 MG TABLET PO (08:42)
[2023-04-17] MEDS: FLUoxetine HCl 10 MG CAPSULE 30 MG PO (08:42)
[2023-04-17] MEDS: LOSARTAN POTASSIUM 100 MG PO (08:49)
[2023-04-17] MEDS: HYDROCHLOROTHIAZIDE 12.5 MG PO (08:49)
[2023-04-17] MEDS: Nicotine Polacrilex 2 MG GUM 4 MG BUCCAL ×6 (09:35→22:46)
--- NOTE | 2023-04-17 12:36 | HO.PSYCHPN ---
Subjective Subjective Date of Service: 04/17/23 Reason For Visit: SI ATTEMPT Interim History: calm, cooperative. no issues. slept all right. denies SI/SIBI. mood OK. per staff, 3-day up 11/19. moderate anx/dep. denies SI/HI/AVH. good appetite, ok sleep. anx 2-10/31. had a good visit with yesterday. attending groups. slept after getting PRN. Mental Status Exam Mental Status Exam Narrative: adequately dressed and well-groomed. cooperative. no PMA/PMR. speech nml rate, amount, loudness, tone, latency. thoughts linear and logical. affect more flexible, normo-intense, non-labile. mood ok denies SI/SIBI. Diagnostics Vital Signs (24Hr): Vital Signs - 24 hr 04/16/23 20:20 04/17/23 06:00 Temperature 98 F 98.4 F Pulse Rate 87 75 Respiratory Rate 16 18 Blood Pressure 137/83 Pulse Oximetry 100 98 Oxygen Delivery Method Room Air Room Air BMI result Body Mass Index 22.5 Labs 04/14/23 18:21 04/16/23 08:06 Labs: Laboratory Results - last 48 hr 04/16/23 04/16/23 04/16/23 08:06 08:06 08:06 Sodium 139 Potassium 3.4 Chloride 99 Carbon Dioxide 27 Anion Gap 16 BUN 6 L Creatinine 0.79 Estim Creat Clear Calc 142.0 Estimated GFR > 60 Fasting Glucose 86 Estimat Average Glucose 108 Hemoglobin A1c % 5.4 Calcium 10.0 D Total Bilirubin 1.2 H AST 86 H ALT 53 H Alkaline Phosphatase 88 Total Protein 8.1 H Albumin 4.7 Triglycerides 214 H Cholesterol 271 H LDL Cholesterol, Calc 175 H HDL Cholesterol 54 Vitamin B12 787 Folate 13.5 TSH 0.91 Free T4 0.99 Medications Medications Current Medications Acetaminophen (Acetaminophen 325 Mg Tablet) 650 mg PO Q6H PRN PRN Reason: Headache/Pain Mild Scale (1-3) Al Hydroxide/Mg Hydroxide (Magnesium Hydrox/Alum Hydrox 30 Ml Oral.Susp) 30 ml PO Q6H PRN PRN Reason: Heartburn/Nausea Cyanocobalamin (Cyanocobalamin (Vitamin B-12) 500 Mcg Tablet) 500 mcg PO DAILY [facility] Last Admin: 04/17/23 08:42 Dose: 500 mcg Fluoxetine HCl (Fluoxetine Hcl 10 Mg Capsule) 30 mg PO DAILY COUNT INCLUDES THE [facility] Last Admin: 04/17/23 08:42 Dose: 30 mg Hydrochlorothiazide (Hydrochlorothiazide 12.5 Mg Tablet) 12.5 mg PO DAILY COUNT INCLUDES THE [facility]; Protocol Hydroxyzine HCl (Hydroxyzine Hcl 25 Mg Tablet) 25 mg PO Q6H PRN PRN Reason: Anxiety Last Admin: 04/16/23 22:06 Dose: 25 mg Losartan Potassium (Losartan Potassium 50 Mg Tablet) 100 mg PO DAILY COUNT INCLUDES THE [facility]; Protocol Magnesium Hydroxide (Milk Of Magnesia 30 Ml Oral.Susp) 30 ml PO DAILY PRN PRN Reason: Constipation Naltrexone HCl (Naltrexone Hcl 50 Mg Tablet) 50 mg PO DAILY COUNT INCLUDES THE [facility] Last Admin: 04/17/23 08:42 Dose: 50 mg Nicotine (Nicotine 21 Mg Patch.Td24) 21 mg TRANSDERMA DAILY COUNT INCLUDES THE [facility] Last Admin: 04/17/23 08:41 Dose: 21 mg Nicotine Polacrilex (Nicotine Polacrilex 2 Mg Gum) 4 mg BUCCAL Q2H PRN PRN Reason: Nicotine Cravings Last Admin: 04/17/23 09:35 Dose: 4 mg Trazodone HCl (Trazodone Hcl 50 Mg Tablet) 50 mg PO BEDTIME MRX1 PRN PRN Reason: Insomnia Last Admin: 04/16/23 22:06 Dose: 50 mg Allergies Allergies Allergy/AdvReac Type Severity Reaction Status Date / Time No Known Allergies Allergy Verified 01/02/22 13:27 [No Known Allergies*] Assessment & Plan Assessment & Plan (1) Alcohol use disorder, moderate, dependence: Status: Acute Code(s): F10.20 - Alcohol dependence, uncomplicated (2) Depressive disorder: Status: Acute Code(s): F32.A - Depression, unspecified Plan 04/16: start prozac 30 mg daily for depression. start naltrexone 50 mg daily for alcohol use disorder. addiction consult, refer to addiction outpt Tx. 04/17: tolerating meds fine. 3-day up thursday, will discharge then. establish insurance, refer for outpt F/U. to work on coping skills for the weekend. Reason for continued inpatient stay Substantial Risk for: harm to self, inability to function and rapid decompensation Time Spent With Patient Time: Total time managing care of this patient today ____ minutes.
[2023-04-17 19:45] VITALS: BP 139/66; PULSE 90; RESP 18; TEMP 36.6; O2SAT 98
[2023-04-17] MEDS: traZODone HCL 50 MG TABLET PO (22:46)
[2023-04-17] MEDS: hydrOXYzine HCL 25 MG TABLET PO (22:46)
[2023-04-18] MEDS: Cyanocobalamin (Vitamin B-12) 500 MCG TABLET PO (08:18)
[2023-04-18] MEDS: Nicotine 21 MG PATCH.TD24 TRANSDERMA (08:18)
[2023-04-18] MEDS: FLUoxetine HCl 10 MG CAPSULE 30 MG PO (08:19)
[2023-04-18] MEDS: hydroCHLOROthiazide 12.5 MG TABLET PO (08:19)
[2023-04-18] MEDS: Naltrexone HCl 50 MG TABLET PO (08:19)
[2023-04-18] MEDS: Losartan Potassium 50 MG TABLET 100 MG PO (08:19)
[2023-04-18 08:40] VITALS: BP 125/69; PULSE 91; RESP 18; TEMP 36.5; O2SAT 99
[2023-04-18] MEDS: Nicotine Polacrilex 2 MG GUM 4 MG BUCCAL ×6 (09:52→22:08)
--- NOTE | 2023-04-18 10:45 | P.PNPSI_ITS ---
Subjective Subjective Date of Service: 04/18/23 Reason For Visit: SI ATTEMPT Interim History: calm, cooperative. no issues. slept better. Attending groups. Seen in milieu. Denies SI/SIBI. mood OK. per staff, 3-day up 11/19. Says he feels improved. Denies depression. Mild anxiety. good appetite, ok sleep. anx 2-10/31. Looking forward to ME next week. Review of Systems Review of Systems Constitutional : No Weight loss, No Fever, No Chills, No Night Sweats, No Fatigue, No Malaise ENT/Mouth : No Hearing loss, No Ear Pain, No Nasal Congestion, No Sinus Pain, No Hoarseness, No sore throat, No Rhinorrhea, No Swallowing Difficulty Eyes: No Eye Pain, No Swelling, No Redness, No Foreign Body, No Discharge, No Vision Changes Cardiovascular : No Chest Pain, No SOB, No Dyspnea on Exertion, No Orthopnea, No Edema, No Palpitations Respiratory : No Cough, No Sputum, No Wheezing, No Smoke Exposure, No Dyspnea Gastrointestinal : No Nausea, No Vomiting, No Diarrhea, No Constipation, complaining of epigastric pain. Genitourinary : no irregular bleeding, No Dysuria, No Urinary Frequency, No Hematuria, No Urinary Incontinence, No Urgency, No Flank Pain, No Urinary Flow Changes, No Hesitancy Musculoskeletal : No joint pain, No Myalgias, No Joint Swelling Skin : No Skin Lesions, No rash Neuro : No Weakness, No Numbness, No Paresthesias, No Loss of Consciousness, No Dizziness, No Headache Psych : SI attempt Heme/Lymph: No Bruising, No Bleeding,No Lymphadenopathy Endocrine : No Polyuria, No Polydipsia, No Temperature Intolerance Mental Status Exam Mental Status Exam Narrative: adequately dressed and well-groomed. cooperative. no PMA/PMR. speech nml rate, amount, loudness, tone, latency. thoughts linear and logical. affect more flexible, normo-intense, non-labile. mood ok denies SI/SIBI. Diagnostics Vital Signs (24Hr): Vital Signs - 24 hr 04/17/23 19:45 04/18/23 08:40 Temperature 97.8 F 97.7 F Pulse Rate 90 91 Respiratory Rate 18 18 Blood Pressure 139/66 125/69 Pulse Oximetry 98 99 Oxygen Delivery Method Room Air Room Air BMI result Body Mass Index 22.5 Labs 04/14/23 18:21 04/16/23 08:06 Medications Medications Current Medications Acetaminophen (Acetaminophen 325 Mg Tablet) 650 mg PO Q6H PRN PRN Reason: Headache/Pain Mild Scale (1-3) Al Hydroxide/Mg Hydroxide (Magnesium Hydrox/Alum Hydrox 30 Ml Oral.Susp) 30 ml PO Q6H PRN PRN Reason: Heartburn/Nausea Cyanocobalamin (Cyanocobalamin (Vitamin B-12) 500 Mcg Tablet) 500 mcg PO DAILY [facility] Last Admin: 04/18/23 08:18 Dose: 500 mcg Fluoxetine HCl (Fluoxetine Hcl 10 Mg Capsule) 30 mg PO DAILY [facility] Last Admin: 04/18/23 08:19 Dose: 30 mg Hydrochlorothiazide (Hydrochlorothiazide 12.5 Mg Tablet) 12.5 mg PO DAILY [facility]; Protocol Last Admin: 04/18/23 08:19 Dose: 12.5 mg Hydroxyzine HCl (Hydroxyzine Hcl 25 Mg Tablet) 25 mg PO Q6H PRN PRN Reason: Anxiety Last Admin: 04/17/23 22:46 Dose: 25 mg Losartan Potassium (Losartan Potassium 50 Mg Tablet) 100 mg PO DAILY [facility]; Protocol Last Admin: 04/18/23 08:19 Dose: 100 mg Magnesium Hydroxide (Milk Of Magnesia 30 Ml Oral.Susp) 30 ml PO DAILY PRN PRN Reason: Constipation Naltrexone HCl (Naltrexone Hcl 50 Mg Tablet) 50 mg PO DAILY [facility] Last Admin: 04/18/23 08:19 Dose: 50 mg Nicotine (Nicotine 21 Mg Patch.Td24) 21 mg TRANSDERMA DAILY [facility] Last Admin: 04/18/23 08:18 Dose: 21 mg Nicotine Polacrilex (Nicotine Polacrilex 2 Mg Gum) 4 mg BUCCAL Q2H PRN PRN Reason: Nicotine Cravings Last Admin: 04/18/23 09:52 Dose: 4 mg Trazodone HCl (Trazodone Hcl 50 Mg Tablet) 50 mg PO BEDTIME MRX1 PRN PRN Reason: Insomnia Last Admin: 04/17/23 22:46 Dose: 50 mg Allergies Allergies Allergy/AdvReac Type Severity Reaction Status Date / Time No Known Allergies Allergy Verified 01/02/22 13:27 [No Known Allergies*] Assessment & Plan Assessment & Plan (1) Alcohol use disorder, moderate, dependence: Status: Acute Code(s): F10.20 - Alcohol dependence, uncomplicated (2) Depressive disorder: Status: Acute Code(s): F32.A - Depression, unspecified Plan 04/16: start prozac 30 mg daily for depression. start naltrexone 50 mg daily for alcohol use disorder. addiction consult, refer to addiction outpt Tx. 04/17: tolerating meds fine. 3-day up thursday, will discharge then. establish insurance, refer for outpt F/U. to work on coping skills for the weekend. 04/18: Continue current plan. Reason for continued inpatient stay Substantial Risk for: harm to self, inability to function and rapid decompensation Time Spent With Patient Time: Total time managing care of this patient today ____ minutes.
--- NOTE | 2023-04-18 13:55 | MHC.RECOVRN ---
This report writer met with patient after receiving addiction consult. Pt had presented to ED for suicide attempt, ingestion of more then prescribed gapapentin. Pt was eating lunch when this report writer entered floor, pt alert, oriented, easy to engage. Pt reports had been doing well, pt states had ETOH recurrence and went to 30 day substance use treatment at [facility], December 2022. Pt reports upon completing treatment, had been attending AA and had been in touch with therapist to make appt. Pt reports job change, currently unemployed, seeking employment, lost health insurance. Pt reports was unable to fill Prozac, high BP med for several weeks. Pt reports since tx in December 2022, had one day recurrence in January 2023. 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 Pt states has found naltrexone helpful in the past, pt would like to be d/c with naltrexone rx. Pt reports plans to continue with AA, has meeting recovery [place] on phone that finds helpful. Reviewed recovery supports. Pt agreeable to appt at the [facility]. Reviewed plan, this report writer to call pt 04/23/23, check in, pt to be insured 04/24/23, at which point will then schedule MAT intake appt. Pt agreeable to plan.
[2023-04-18 19:45] VITALS: BP 123/69; PULSE 97; RESP 18; TEMP 36.9; O2SAT 97
[2023-04-18] MEDS: hydrOXYzine HCL 25 MG TABLET PO (22:47)
[2023-04-18] MEDS: traZODone HCL 50 MG TABLET PO (22:47)
[2023-04-19] MEDS: FLUoxetine HCl 10 MG CAPSULE 30 MG PO (08:14)
[2023-04-19] MEDS: hydroCHLOROthiazide 12.5 MG TABLET PO (08:15)
[2023-04-19] MEDS: Cyanocobalamin (Vitamin B-12) 500 MCG TABLET PO (08:15)
[2023-04-19] MEDS: Naltrexone HCl 50 MG TABLET PO (08:15)
[2023-04-19] MEDS: Losartan Potassium 50 MG TABLET 100 MG PO (08:15)
[2023-04-19] MEDS: Nicotine 21 MG PATCH.TD24 TRANSDERMA (08:15)
--- NOTE | 2023-04-19 08:25 | P.EN_ITS ---
Event Note Date of Service: 04/19/23 Event Note: Patient seen by head coach Pending referral to [facility] once insurance is active Continue naltrexone See head coach note for additional details Time Spent With Patient Time: Total time managing care of this patient today ____ minutes.
--- NOTE | 2023-04-19 08:25 | PM.EVENT ---
Event Note Date of Service: 04/19/23 Event Note: Patient seen by spud grader Pending referral to [facility] once insurance is active Continue naltrexone See spud grader note for additional details Time Spent With Patient Time: Total time managing care of this patient today ____ minutes.
[2023-04-19 08:40] VITALS: BP 122/63; PULSE 88; RESP 20; TEMP 36.3; O2SAT 100
[2023-04-19] MEDS: Nicotine Polacrilex 2 MG GUM 4 MG BUCCAL ×6 (09:32→22:27)
--- NOTE | 2023-04-19 13:55 | HO.PSYCHPN ---
Subjective Subjective Date of Service: 04/19/23 Reason For Visit: SI ATTEMPT Interim History: calm, cooperative. no issues. slept better. Attending groups. Seen in milieu. Denies SI/SIBI. mood OK. per staff, 3-day up 11/19. Says he feels improved. Denies depression. Mild anxiety. good appetite, ok sleep. Looking forward to MS. Review of Systems Review of Systems Constitutional : No Weight loss, No Fever, No Chills, No Night Sweats, No Fatigue, No Malaise ENT/Mouth : No Hearing loss, No Ear Pain, No Nasal Congestion, No Sinus Pain, No Hoarseness, No sore throat, No Rhinorrhea, No Swallowing Difficulty Eyes: No Eye Pain, No Swelling, No Redness, No Foreign Body, No Discharge, No Vision Changes Cardiovascular : No Chest Pain, No SOB, No Dyspnea on Exertion, No Orthopnea, No Edema, No Palpitations Respiratory : No Cough, No Sputum, No Wheezing, No Smoke Exposure, No Dyspnea Gastrointestinal : No Nausea, No Vomiting, No Diarrhea, No Constipation, complaining of epigastric pain. Genitourinary : no irregular bleeding, No Dysuria, No Urinary Frequency, No Hematuria, No Urinary Incontinence, No Urgency, No Flank Pain, No Urinary Flow Changes, No Hesitancy Musculoskeletal : No joint pain, No Myalgias, No Joint Swelling Skin : No Skin Lesions, No rash Neuro : No Weakness, No Numbness, No Paresthesias, No Loss of Consciousness, No Dizziness, No Headache Psych : SI attempt Heme/Lymph: No Bruising, No Bleeding,No Lymphadenopathy Endocrine : No Polyuria, No Polydipsia, No Temperature Intolerance Mental Status Exam Mental Status Exam Narrative: adequately dressed and well-groomed. cooperative. no PMA/PMR. speech nml rate, amount, loudness, tone, latency. thoughts linear and logical. affect more flexible, normo-intense, non-labile. mood ok denies SI/SIBI. Diagnostics Vital Signs (24Hr): Vital Signs - 24 hr 04/18/23 19:45 04/19/23 08:40 Temperature 98.4 F 97.3 F Pulse Rate 97 88 Respiratory Rate 18 20 Blood Pressure 123/69 122/63 Pulse Oximetry 97 100 Oxygen Delivery Method Room Air Room Air BMI result Body Mass Index 22.5 Labs 04/14/23 18:21 04/16/23 08:06 Medications Medications Current Medications Acetaminophen (Acetaminophen 325 Mg Tablet) 650 mg PO Q6H PRN PRN Reason: Headache/Pain Mild Scale (1-3) Al Hydroxide/Mg Hydroxide (Magnesium Hydrox/Alum Hydrox 30 Ml Oral.Susp) 30 ml PO Q6H PRN PRN Reason: Heartburn/Nausea Cyanocobalamin (Cyanocobalamin (Vitamin B-12) 500 Mcg Tablet) 500 mcg PO DAILY [facility] Last Admin: 04/19/23 08:15 Dose: 500 mcg Fluoxetine HCl (Fluoxetine Hcl 10 Mg Capsule) 30 mg PO DAILY [facility] Last Admin: 04/19/23 08:14 Dose: 30 mg Hydrochlorothiazide (Hydrochlorothiazide 12.5 Mg Tablet) 12.5 mg PO DAILY [facility]; Protocol Last Admin: 04/19/23 08:15 Dose: 12.5 mg Hydroxyzine HCl (Hydroxyzine Hcl 25 Mg Tablet) 25 mg PO Q6H PRN PRN Reason: Anxiety Last Admin: 04/18/23 22:47 Dose: 25 mg Losartan Potassium (Losartan Potassium 50 Mg Tablet) 100 mg PO DAILY [facility]; Protocol Last Admin: 04/19/23 08:15 Dose: 100 mg Magnesium Hydroxide (Milk Of Magnesia 30 Ml Oral.Susp) 30 ml PO DAILY PRN PRN Reason: Constipation Naltrexone HCl (Naltrexone Hcl 50 Mg Tablet) 50 mg PO DAILY [facility] Last Admin: 04/19/23 08:15 Dose: 50 mg Nicotine (Nicotine 21 Mg Patch.Td24) 21 mg TRANSDERMA DAILY [facility] Last Admin: 04/19/23 08:15 Dose: 21 mg Nicotine Polacrilex (Nicotine Polacrilex 2 Mg Gum) 4 mg BUCCAL Q2H PRN PRN Reason: Nicotine Cravings Last Admin: 04/19/23 12:16 Dose: 4 mg Trazodone HCl (Trazodone Hcl 50 Mg Tablet) 50 mg PO BEDTIME MRX1 PRN PRN Reason: Insomnia Last Admin: 04/18/23 22:47 Dose: 50 mg Allergies Allergies Allergy/AdvReac Type Severity Reaction Status Date / Time No Known Allergies Allergy Verified 01/02/22 13:27 [No Known Allergies*] Assessment & Plan Assessment & Plan (1) Alcohol use disorder, moderate, dependence: Status: Acute Code(s): F10.20 - Alcohol dependence, uncomplicated (2) Depressive disorder: Status: Acute Code(s): F32.A - Depression, unspecified Plan 04/16: start prozac 30 mg daily for depression. start naltrexone 50 mg daily for alcohol use disorder. addiction consult, refer to addiction outpt Tx. 04/17: tolerating meds fine. 3-day up thursday, will discharge then. establish insurance, refer for outpt F/U. to work on coping skills for the weekend. 04/18: Continue current plan. 04/19: Continue current plan. Reason for continued inpatient stay Substantial Risk for: harm to self, inability to function and rapid decompensation Time Spent With Patient Time: Total time managing care of this patient today ____ minutes.
[2023-04-19 21:06] VITALS: BP 157/94; PULSE 108; TEMP 36.7; O2SAT 100
[2023-04-19] MEDS: hydrOXYzine HCL 25 MG TABLET PO (22:50)
[2023-04-19] MEDS: traZODone HCL 50 MG TABLET PO (22:50)
[2023-04-20 08:00] VITALS: BP 128/78; PULSE 97; RESP 16; TEMP 36.7; O2SAT 99
[2023-04-20] MEDS: Nicotine 21 MG PATCH.TD24 TRANSDERMA (08:17)
[2023-04-20] MEDS: Losartan Potassium 50 MG TABLET 100 MG PO (08:18)
[2023-04-20] MEDS: Cyanocobalamin (Vitamin B-12) 500 MCG TABLET PO (08:18)
[2023-04-20] MEDS: FLUoxetine HCl 10 MG CAPSULE 30 MG PO (08:19)
[2023-04-20] MEDS: Naltrexone HCl 50 MG TABLET PO (08:19)
[2023-04-20] MEDS: hydroCHLOROthiazide 12.5 MG TABLET PO (08:19)
--- NOTE | 2023-04-20 10:03 | PM.PSYDC ---
DS: Providers Provider Date of Service: 04/20/23 Date of admission: 04/15/23 13:41 Primary care physician: Unknown Physician Consults: 04/16/23 14:22 Addiction Medicine Routine Consulting Provider: Addiction Covering Reason for consultation: alcohl use disorder, restarting naltrexone, wants aftercare Has provider been notified: Yes DS: Diagnosis Discharge Diagnosis (1) Alcohol use disorder, moderate, dependence: Status: Acute (2) Depressive disorder: Status: Acute DS: Medications Discharge Medications Home Medications: Previous Rx's Medication Instructions Recorded cyanocobalamin (vitamin B-12) 500 500 mcg PO DAILY 30 days #30 tabs 04/20/23 mcg tablet fluoxetine 10 mg capsule 30 mg PO DAILY 30 days #90 caps 04/20/23 losartan 100 1 tab PO DAILY 30 days #30 tabs 04/20/23 mg-hydrochlorothiazide 12.5 mg tablet naltrexone 50 mg tablet 50 mg PO DAILY 30 days #30 tabs 04/20/23 nicotine (polacrilex) 2 mg gum 4 mg buccal Q2H PRN Nicotine 04/20/23 Cravings 30 days #240 ea nicotine 21 mg/24 hr daily 21 mg transdermal DAILY 28 days 04/20/23 transdermal patch #28 ea trazodone 50 mg tablet 50 mg PO BEDTIME MRX1 PRN Insomnia 04/20/23 30 days #30 tabs Mental Status Exam Mental Status Exam Narrative: adequately dressed and well-groomed. cooperative. no PMA/PMR. speech nml rate, amount, loudness, tone, latency. thoughts linear and logical. affect more flexible, normo-intense, non-labile. mood good denies SI/SIBI. Data Data Completed and Pending Completed studies during hospitalization [Text1]: 04/14/23 04/14/23 04/14/23 18:21 18:21 18:21 WBC 5.6 RBC 5.13 Hgb 14.1 Hct 42.9 MCV 83.6 MCH 27.5 MCHC 32.9 RDW 14.3 Plt Count 224 MPV 10.0 Immature Gran % (Auto) 0.2 Neut % (Auto) 33.7 L Lymph % (Auto) 58.7 H [place] % (Auto) 6.7 Eos % (Auto) 0.2 Baso % (Auto) 0.5 Lymph # (Auto) 3.3 [place] # (Auto) 0.4 Eos # (Auto) 0.0 Baso # (Auto) 0.0 Abs Immat Gran (auto) 0.01 Absolute Neuts (auto) 1.9 L Absolute Nucleated RBC 0.000 Nucleated RBC % (auto) 0.0 PT INR Sodium 144 Potassium 3.4 Chloride 105 Carbon Dioxide 24 Anion Gap 18 BUN 7 L Creatinine 0.80 Estim Creat Clear Calc 130.1 Estimated GFR > 60 Random Glucose 80 Fasting Glucose Estimat Average Glucose Hemoglobin A1c % Calcium 9.0 Magnesium 2.1 Total Bilirubin 0.6 Direct Bilirubin 0.2 AST 59 H ALT 39 Alkaline Phosphatase 90 Troponin I High Sens 7.7 D Total Protein 7.9 Albumin 4.6 Triglycerides Cholesterol LDL Cholesterol, Calc HDL Cholesterol Lipase 9 Vitamin B12 Folate TSH Free T4 Urine Color Urine Appearance Urine pH Ur Specific [place] Urine Protein Urine Glucose (UA) Urine Ketones Urine Blood Urine Nitrite Ur Leukocyte Esterase Urine RBC Urine WBC Ur Squamous Epith Cells Urine Bacteria Hyaline Casts Salicylates Urine Opiates Screen Urine Fentanyl Screen Acetaminophen Ur Barbiturates Screen Ur Phencyclidine Scrn Ur Amphetamines Screen U Benzodiazepines Scrn Urine Cocaine Screen U Marijuana (THC) Screen Ethyl Alcohol COVID-19 ([facility]) COVID-19 Clin Com 04/14/23 04/14/23 04/14/23 18:21 18:21 18:21 WBC RBC Hgb Hct MCV MCH MCHC RDW Plt Count MPV Immature Gran % (Auto) Neut % (Auto) Lymph % (Auto) [place] % (Auto) Eos % (Auto) Baso % (Auto) Lymph # (Auto) [place] # (Auto) Eos # (Auto) Baso # (Auto) Abs Immat Gran (auto) Absolute Neuts (auto) Absolute Nucleated RBC Nucleated RBC % (auto) PT 11.3 INR 0.9 Sodium Potassium Chloride Carbon Dioxide Anion Gap BUN Creatinine Estim Creat Clear Calc Estimated GFR Random Glucose Fasting Glucose Estimat Average Glucose Hemoglobin A1c % Calcium Magnesium Total Bilirubin Direct Bilirubin AST ALT Alkaline Phosphatase Troponin I High Sens Total Protein Albumin Triglycerides Cholesterol LDL Cholesterol, Calc HDL Cholesterol Lipase Vitamin B12 Folate TSH Free T4 Urine Color Urine Appearance Urine pH Ur Specific [place] Urine Protein Urine Glucose (UA) Urine Ketones Urine Blood Urine Nitrite Ur Leukocyte Esterase Urine RBC Urine WBC Ur Squamous Epith Cells Urine Bacteria Hyaline Casts Salicylates < 5.0 L Urine Opiates Screen Urine Fentanyl Screen Acetaminophen < 17 Ur Barbiturates Screen Ur Phencyclidine Scrn Ur Amphetamines Screen U Benzodiazepines Scrn Urine Cocaine Screen U Marijuana (THC) Screen Ethyl Alcohol COVID-19 ([facility]) Negative COVID-19 [facility] Com See Note 04/14/23 04/14/23 04/14/23 18:21 20:06 20:06 WBC RBC Hgb Hct MCV MCH MCHC RDW Plt Count MPV Immature Gran % (Auto) Neut % (Auto) Lymph % (Auto) [place] % (Auto) Eos % (Auto) Baso % (Auto) Lymph # (Auto) [place] # (Auto) Eos # (Auto) Baso # (Auto) Abs Immat Gran (auto) Absolute Neuts (auto) Absolute Nucleated RBC Nucleated RBC % (auto) PT INR Sodium Potassium Chloride Carbon Dioxide Anion Gap BUN Creatinine Estim Creat Clear Calc Estimated GFR Random Glucose Fasting Glucose Estimat Average Glucose Hemoglobin A1c % Calcium Magnesium Total Bilirubin Direct Bilirubin AST ALT Alkaline Phosphatase Troponin I High Sens Total Protein Albumin Triglycerides Cholesterol LDL Cholesterol, Calc HDL Cholesterol Lipase Vitamin B12 Folate TSH Free T4 Urine Color Yellow Urine Appearance Clear Urine pH 6.0 Ur Specific [place] 1.025 Urine Protein 30 (1+) H Urine Glucose (UA) Negative Urine Ketones 80 Urine Blood Negative Urine Nitrite Negative Ur Leukocyte Esterase Negative Urine RBC 3-5 H Urine WBC 0-5 Ur Squamous Epith Cells 0-2 Urine Bacteria None Seen Hyaline Casts 0-2 Salicylates Urine Opiates Screen Not Detected Urine Fentanyl Screen Not Detected Acetaminophen Ur Barbiturates Screen Not Detected Ur Phencyclidine Scrn Not Detected Ur Amphetamines Screen Not Detected U Benzodiazepines Scrn Not Detected Urine Cocaine Screen Not Detected U Marijuana (THC) Screen POSITIVE H Ethyl Alcohol 242 COVID-19 ([facility]) COVID-19 Clin Com 04/16/23 04/16/23 04/16/23 08:06 08:06 08:06 WBC RBC Hgb Hct MCV MCH MCHC RDW Plt Count MPV Immature Gran % (Auto) Neut % (Auto) Lymph % (Auto) [place] % (Auto) Eos % (Auto) Baso % (Auto) Lymph # (Auto) [place] # (Auto) Eos # (Auto) Baso # (Auto) Abs Immat Gran (auto) Absolute Neuts (auto) Absolute Nucleated RBC Nucleated RBC % (auto) PT INR Sodium 139 Potassium 3.4 Chloride 99 Carbon Dioxide 27 Anion Gap 16 BUN 6 L Creatinine 0.79 Estim Creat Clear Calc 142.0 Estimated GFR > 60 Random Glucose Fasting Glucose 86 Estimat Average Glucose 108 Hemoglobin A1c % 5.4 Calcium 10.0 D Magnesium Total Bilirubin 1.2 H Direct Bilirubin AST 86 H ALT 53 H Alkaline Phosphatase 88 Troponin I High Sens Total Protein 8.1 H Albumin 4.7 Triglycerides 214 H Cholesterol 271 H LDL Cholesterol, Calc 175 H HDL Cholesterol 54 Lipase Vitamin B12 787 Folate 13.5 TSH 0.91 Free T4 0.99 Urine Color Urine Appearance Urine pH Ur Specific [place] Urine Protein Urine Glucose (UA) Urine Ketones Urine Blood Urine Nitrite Ur Leukocyte Esterase Urine RBC Urine WBC Ur Squamous Epith Cells Urine Bacteria Hyaline Casts Salicylates Urine Opiates Screen Urine Fentanyl Screen Acetaminophen Ur Barbiturates Screen Ur Phencyclidine Scrn Ur Amphetamines Screen U Benzodiazepines Scrn Urine Cocaine Screen U Marijuana (THC) Screen Ethyl Alcohol COVID-19 ([facility]) COVID-19 Clin Com DS: Summary Hospital Course Hospital Course: per 04/16 admission note: per CARE team evaluation, pt was BIBA after his found him down and unresponsive when she returned from work.? he had apparently gotten intoxicated and then taken a bottle of gabapentin 300 mg pills; he also had left a suicide note for his and 1 yo daughter.? once awakening, he endorsed SI and denied any recollection of having written the suicide note.? he reported psychosocial stressors of loss of his mother last year and having lost his job several months ago.? he had started prozac recently but went of the medication several weeks ago when he was unable to obtain a script renewal. on interview with MD, pt reports he recently has been applying for lots of jobs and doing interviews.? he has been stressed about money and got Realy down for some reason on thursday; perhaps bcse one of the jobs got back to him with a salary which was very much lower than what hd been represented during the interview.? he was also feeling stressed he had been unable to get his prozac refilled.? he lapsed to alcohol use for only the second time since having completed a detox in december of 2022 (which is when he had been prescribed the prozac).? he believes he drank 4-6 nips and he was also taking gabapentin pills along with the nips.? he states he was just trying to take the edge off of feeling overwhelmed, and he felt like he was getting buzzed.? but then he started to feel very tired and got concerned about what he had done.? he states the next thing he can recall is waking up in the hospital.? he is very regretful of his behavior and adamantly denies SI currently.? he is interested in F/U with therapy and psych MD and also in restarting prozac and naltrexone, which he had been on during treatment with [facility] previously.? he is also interested in reestablishing himself in Tx with [facility]. Past Psychiatric History: hosps:? none prior SA:? none prior SIB:? denies HIB:? denies outpt:? none current.? h/o therapy about 5 years ago (depression during/after bad breakup ). started prozac 12/2022 while at alcohol detox.? ran out several weeks [employer]. Medical Evaluation Reviewed: Yes [facility] Medical History?(Updated 04/16/23 @ 14:24 by Preston Leblanc) Alcohol use disorder, moderate, dependence HTN (hypertension) Suicide attempt Surgical History? H/O wrist surgery Family History: uncles - alcohol Social History: , 1 yo daughter.? currently unemployed, making job applications. Substance History: tobacco - about 0.5-0.75 ppd cannabis - 4-6 days per week alcohol - h/o dependence.? h/o detox 12/2022.? h/o naltrexone through [facility].? lapsed x2 since detox in december, [employer], day . Trauma History: reported emotional, other trauma Hx Precis: 04/16:? start prozac 30 mg daily for depression.? start naltrexone 50 mg daily for alcohol use disorder.? addiction consult, refer to addiction outpt Tx. 04/17:? tolerating meds fine.? 3-day up thursday, will discharge then.? establish insurance, refer for outpt F/U.? to work on coping skills for the weekend. 04/18: Continue current plan. 04/19: Continue current plan. 04/20: stable, feeling well. discharge today as per plan. awaiting medical insurance, then will call for appointments. meds reviewed, reconciled, prescribed. Time Spent with Patient Time attestation: Total time managing care of this patient today ____ minutes. Time spent: Greater than 30 minutes Discharge Plan Discharge Anticipated Discharge Date/Time: 04/20/23 10:01 Patient Disposition: Home, Self-Care Discharge Diagnosis: Depressive Disorder NOS Alcohol Use Disorder Referrals: [facility] Ambrocio Whelan [Provider Group] - 1 Week (PCP will contact patient with follow up appt.) Discharge Medications: New trazodone 50 mg Tablet 50 mg PO BEDTIME MRX1 PRN (Reason: Insomnia) 30 Days Qty: 30 1RF nicotine (polacrilex) 2 mg Gum 4 mg buccal Q2H PRN (Reason: Nicotine Cravings) 30 Days Qty: 240 2RF naltrexone 50 mg Tablet 50 mg PO DAILY 30 Days Qty: 30 1RF nicotine 21 mg/24 hr Patch 24 Hour 21 mg transdermal DAILY 28 Days Qty: 28 1RF Continued cyanocobalamin (vitamin B-12) 500 mcg tablet 500 mcg PO DAILY 30 Days Qty: 30 1RF fluoxetine 10 mg capsule 30 mg PO DAILY 30 Days Qty: 90 1RF losartan-hydrochlorothiazide 100-12.5 mg tablet 1 tab PO DAILY 30 Days Qty: 30 1RF Discharge Orders: Discharge Order (Routine); Ordered 04/20/23 Ordered By: Preston Leblanc Diet: Advance to usual diet Activity on Discharge: As tolerated Stand Alone Forms: Patient Portal Discharge page, Community Support Care Plan Goals: remain safe, stable, and sober in the outpatient treatment setting Health Concerns: none Plan of Treatment: take medications as prescribed, follow up with outpatient referrals once you obtain health insurance Assessment: not at imminent risk of harm to self or others Discharge Date/Time: 04/20/23 10:15
[2023-04-20] MEDS: Nicotine Polacrilex 2 MG GUM 4 MG BUCCAL (10:07)
== END 2023-04-20 10:15 | disposition home or self-care (01) | DRG 881 ==
LOC: HO.ED 04-15 13:43 → HO.PADLT16 04-15 13:50
PROVIDERS: Admitting Provider Psychiatry & Neurology Psychiatry; Emergency Provider Emergency Medicine; Visit Provider Psychiatry & Neurology Psychiatry
DX: F32.A Depression, unspecified (principal); F10.20 Alcohol dependence, uncomplicated; F17.210 Nicotine dependence, cigarettes, uncomplicated; Z71.6 Tobacco abuse counseling; T42.6X2A Poisoning by other antiepileptic and sedative-hypnotic drugs, intentional self-harm, initial encounter; Y90.8 Blood alcohol level of 240 mg/100 ml or more; Z20.822 Contact with and (suspected) exposure to COVID-19; Z79.899 Other long term (current) drug therapy
CPT/HCPCS: 36415; 80048; 80053; 80061; 80076; 80143; 80179; 80307; 81001; 82607; 82746; 83036; 83690; 83735; 84439; 84443; 84484; 85025; 85610; 87635; 93005; 99285; S9485

== ENCOUNTER → 2023-04-15 13:41 | Outpatient (BNV) | payer SELFPAY | PROVIDERS: Admitting Provider Psychiatry & Neurology Psychiatry; Emergency Provider Emergency Medicine; Visit Provider Psychiatry & Neurology Psychiatry | DX: F33.2 Major depressive disorder, recurrent severe without psychotic features (principal); F10.20 Alcohol dependence, uncomplicated | CPT/HCPCS: 90792; 99231; 99239; 99499 ==

== ENCOUNTER 2023-05-01 10:30 | Outpatient (AMB) | payer OTHER, SELFPAY ==
--- NOTE | 2023-05-01 10:30 | MHC.OFFVIS ---
Intake Vital Signs 05/01/23 10:34 BP 106/72 Blood Pressure Location Lt radial Position Sitting Pulse 72 Pulse Source Pulse Oximeter Pulse Oximetry (%) 99 Oxygen Delivery Method Room Air Intake Visit Reasons: MAT restart Intake Note: the patient presents for a mat restart [employer] Affiliate Required: No Allergies No Known Allergies [No Known Allergies*] Allergy (Verified 05/01/23 10:35) Do you need a note to return to daycare/school/sports/work: No PFSH Medical History (Updated 04/28/23 @ 00:02 by Riley Loo) Suicide attempt Alcohol use disorder, moderate, dependence HTN (hypertension) Surgical History H/O wrist surgery Social History Household Members: Spouse and Children Housing: House Do you presently have visiting nurse or other home services: No Alcohol intake: current Patient Tobacco Use Status: Current everyday Tobacco user Tobacco use type: Cigarette Cigarette Packs Per Day: 0.75 Cigarettes Per Day: 15.0 Years Smoked: 12 e-Cigarette/Vaping Use: Currently Using Substance Use Type: Marijuana Sexual orientation: Straight/Heterosexual Coding
[2023-05-01 10:34] VITALS: BP 106/72; PULSE 72; O2SAT 99
--- NOTE | 2023-05-01 10:42 | A.OFFVIS_ITS ---
Intake Vital Signs 05/01/23 10:34 BP 106/72 Blood Pressure Location Lt radial Position Sitting Pulse 72 Pulse Source Pulse Oximeter Pulse Oximetry (%) 99 Oxygen Delivery Method Room Air Intake Visit Reasons: MAT restart Allergies No Known Allergies [No Known Allergies*] Allergy (Verified 05/01/23 10:35) HPI MAT restart HPI Details Recently admitted to unit for suicide attempt. Notes of admission reviewed. Brighter affect today. Future oriented. Thursday will hear about a new job Focused more on self care Strong family supports Referred to therapist --needs to call and follow up Waiting for new job to have health insurance become active Has been taking Naltrexone. No alcohol since prior to admission [facility] Medical History (Updated 04/28/23 @ 00:02 by Riley Loo) Suicide attempt Alcohol use disorder, moderate, dependence HTN (hypertension) Surgical History H/O wrist surgery Social History Household Members: Spouse and Children Housing: House Do you presently have visiting nurse or other home services: No Alcohol intake: current Patient Tobacco Use Status: Current everyday Tobacco user Tobacco use type: Cigarette Cigarette Packs Per Day: 0.75 Cigarettes Per Day: 15.0 Years Smoked: 12 e-Cigarette/Vaping Use: Currently Using Substance Use Type: Marijuana Sexual orientation: Straight/Heterosexual Review of Systems Const Reports as per HPI and Reports no additional complaints Physical Exam Vital Signs: Last Vital Signs Pulse 72 05/01/23 10:34 BP 106/72 05/01/23 10:34 Pulse Ox 99 05/01/23 10:34 Oxygen Delivery Method Room Air 05/01/23 10:34 Const General: cooperative, healthy appearing and no acute distress Nutritional Appearance: average body habitus Orientation/consciousness: patient oriented x3 Neuro General: patient oriented x3 Assessment & Plan Assessment & Plan (1) Alcohol use disorder, moderate, dependence: Code(s): F10.20 - Alcohol dependence, uncomplicated Plan: * continue naltrexone * relapse prevention discussion * followup 2 weeks (2) Depressive disorder: Code(s): F32.A - Depression, unspecified Coding Level of Care Code Est Pt Level 3 (62805) Diagnoses Alcohol use disorder, moderate, dependence F10.20 Depressive disorder F32.A
== END 2023-05-01 11:17 | disposition home or self-care (01) ==
PROVIDERS: PCP Physician Assistant; Visit Provider Nurse Practitioner Psychiatric/Mental Health
DX: F10.20 Alcohol dependence, uncomplicated (principal); F32.A Depression, unspecified
CPT/HCPCS: 99213

== ENCOUNTER → 2023-05-01 10:30 | Outpatient (BNVA) | payer OTHER, SELFPAY | PROVIDERS: PCP Physician Assistant ==

== ENCOUNTER 2023-05-15 09:32 | Outpatient (AMB) | payer OTHER, SELFPAY ==
[2023-05-15 09:36] VITALS: BP 122/78; PULSE 83; O2SAT 97
--- NOTE | 2023-05-15 09:36 | A.OFFVIS_ITS ---
Intake Vital Signs 05/15/23 09:36 BP 122/78 Blood Pressure Location Lt radial Position Sitting Pulse 83 Pulse Source Pulse Oximeter Pulse Oximetry (%) 97 Oxygen Delivery Method Room Air Intake Visit Reasons: MAT restart Intake Note: THE PATIENT PRESENTS FOR A MAT VISIT [employer] Required: No Allergies No Known Allergies [No Known Allergies*] Allergy (Verified 05/15/23 09:37) Do you need a note to return to daycare/school/sports/work: No HPI MAT restart HPI Details Patient presents for AUD treatment follow up Currently prescribed Naltrexone 50mg QD Reports he is still abstaining from alcohol Did not get the job he thought he was getting, but waiting for an offer from another potential employer. Started seeing therapist recently, will be seeing weekly on Tuesdays Discussed taking additional dose of naltrexone PRN [facility] Medical History (Updated 04/28/23 @ 00:02 by Riley Loo) Suicide attempt Alcohol use disorder, moderate, dependence HTN (hypertension) Surgical History H/O wrist surgery Social History Household Members: Spouse and Children Housing: House Do you presently have visiting nurse or other home services: No Alcohol intake: current Patient Tobacco Use Status: Current everyday Tobacco user Tobacco use type: Cigarette Cigarette Packs Per Day: 0.75 Cigarettes Per Day: 15.0 Years Smoked: 12 e-Cigarette/Vaping Use: Currently Using Substance Use Type: Marijuana Sexual orientation: Straight/Heterosexual Review of Systems Const Reports as per HPI and Reports no additional complaints Physical Exam Vital Signs: Last Vital Signs Pulse 83 05/15/23 09:36 BP 122/78 05/15/23 09:36 Pulse Ox 97 05/15/23 09:36 Oxygen Delivery Method Room Air 05/15/23 09:36 Const General: cooperative, healthy appearing and no acute distress Nutritional Appearance: average body habitus Orientation/consciousness: patient oriented x3 Neuro General: patient oriented x3 Assessment & Plan Assessment & Plan (1) Alcohol use disorder, moderate, dependence: Code(s): F10.20 - Alcohol dependence, uncomplicated Plan: * continue naltrexone * relapse prevention discussion * followup 2 weeks (2) Depressive disorder: Code(s): F32.A - Depression, unspecified Coding Level of Care Code Est Pt Level 3 (45304) Diagnoses Alcohol use disorder, moderate, dependence F10.20 Depressive disorder F32.A
== END 2023-05-15 10:11 | disposition home or self-care (01) ==
LOC: HO.HCC 09:32
PROVIDERS: PCP Physician Assistant; Visit Provider Nurse Practitioner Psychiatric/Mental Health
DX: F10.20 Alcohol dependence, uncomplicated (principal); F32.A Depression, unspecified
CPT/HCPCS: 99213

== ENCOUNTER → 2023-05-15 09:32 | Outpatient (BNVA) | payer OTHER, SELFPAY | PROVIDERS: PCP Physician Assistant; Visit Provider Nurse Practitioner Psychiatric/Mental Health ==

== ENCOUNTER → 2023-05-29 08:49 | Outpatient (BNVA) | payer OTHER, SELFPAY | PROVIDERS: PCP Physician Assistant; Visit Provider Nurse Practitioner Psychiatric/Mental Health ==